=== PATIENT | female | born 1955 | race Caucasian/White ===

== ENCOUNTER 2016-04-28 07:30 | Inpatient (IN) | payer BC ==
--- NOTE | 2016-04-22 23:58 | Pre-op HX & Phy Repo 2 SIG ---
DATE OF ADMISSION: 04/28/2016 HISTORY OF PRESENT ILLNESS: The patient is a 60-year-old female, in overall stable health with a malfunctioning Burrell continent ileostomy with continuous daily incontinence, but without difficulty with intubation. The patient has a past history of ulcerative colitis and in 1985, underwent proctocolectomy with conventional Cecilia ileostomy. In 1990, she underwent conversion of her conventional ileostomy to a Burrell type of Kock pouch continent ileostomy. She had no issues for over 20 years. In early 2014, she began having incontinence and difficulty with intubation and underwent a surgical revision at another hospital. Postoperatively, she had persistent incontinence and was told she had an ulceration within the valve. She underwent another revision at the same outside hospital in July 2015 in [place] with a two hour lysis of adhesions and findings of a patulent valve, which was narrowed and stapled to the pouch wall and the collar was reestablished. The patient stated that as soon as her postoperative indwelling catheter was removed then she started intubating her pouch, she was immediately incontinent within two days of discharge. Her usual routine was to intubate four to six times per day and she had initially in 1990, frequent pouchitis, but then only occasional. She has been taking Cipro 500 mg every 12 hours, which somewhat improves the incontinence, but definitely does not control it to any great degree. She is scheduled to undergo a surgical revision of her malfunctioning Burrell pouch likely to create a new valve and stoma with preservation of the existing pouch. She will also undergo preoperative pouch endoscopy. The patient has indicated she definitely does not want to return to a Cecilia ileostomy. OPERATIONS: In addition to the above, she had surgery in 1989 for left ovarian cysts. MEDICATIONS: Effexor XL, Synthroid, Cipro, and Toviaz for bladder spasms (the patient had difficulty with the urinary Can catheter and has had persistent painful urination since then with negative work up). ALLERGIES: None. PHYSICAL EXAMINATION: VITAL SIGNS: The patient is 5 foot 8.5 inches and approximately 125 pounds. [place] and will be examined upon arrival and dictated separately. IMPRESSION: 1. Malfunctioning Burrell continent ileostomy with incontinence. 2. History of ulcerative colitis. 3. History of bladder spasms. 4. History of left ovarian cyst. 5. Status post multiple abdominal operations. 5.1. Proctocolectomy and Cecilia ileostomy in 1985. 5.2. Burrell continent ileostomy in 1990. 5.3. Revision of Burrell pouch in August 2014. 5.4. Revision of Burrell pouch in July 2015. 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 The only other option would be to excise this pouch and do a conventional ileostomy, which she definitely wishes to avoid. I have discussed the risks of surgery including bleeding, infection, injury to adjacent structures or organs, recurrent difficulties with the pouch or stoma needing more revisions, deep vein thrombosis despite prophylaxis, anesthetic issues, etc. I will have another discussion in person when she [place] and all questions will be answered. Jeffery Gamboa M.D. DR: JAM JOB#: [id number] CC:
[~2016-04-28] VITALS: Ht 170.2 cm; Wt 58.1 kg
[2016-04-28] MEDS ORDERED: Zolpidem 5mg tab ORAL PRN (09:45)
[2016-04-28 10:00] VITALS: BP 124/84
[2016-04-28 10:51] LABS: BASOPHILS % (AUTO) 2.6 % (0.0-2.0); EOSINOPHILS % (AUTO) 3.3 % (0.0-3.0); LYMPHOCYTES % (AUTO) 13.5 % (20.0-45.0); MEAN CORPUSCULAR HGB CONC 29.8 G/DL (32.0-36.0); MEAN CORPUSCULAR VOLUME 90 FL (80-99); MONOCYTES % (AUTO) 6.1 % (1.0-10.0); NEUTROPHILS % (AUTO) 74.6 % (45.0-75.0); PLATELET COUNT 352 K/UL (150-450); RED BLOOD COUNT 5.02 M/UL (4.20-5.40); RED CELL DISTRIBUTION WIDTH 15.6 % (11.6-14.8); WHITE BLOOD COUNT 4.4 K/UL (4.8-10.8)
[2016-04-28 10:52] LABS: PROTHROMBIN TIME 9.9 SEC (9.30-11.50)
[2016-04-28 10:55] LABS: ALANINE AMINOTRANSFERASE 12 U/L (3-33); ALBUMIN/GLOBULIN RATIO 1.8 (1.0-2.7); ANION GAP 14 (5-15); ASPARTATE AMINO TRANSFERASE 17 U/L (5-40); CALCIUM 9.9 mg/dL (8.6-10.2); CARBON DIOXIDE 27 mEQ/L (20-30); CHLORIDE 102 mEQ/L (98-107); CREATININE 0.8 mg/dL (0.5-0.9); GLOMERULAR FILTRATION RATE > 60 mL/min (>60); POTASSIUM 4.6 mEQ/L (3.4-4.9); SODIUM 143 mEQ/L (135-145); TOTAL PROTEIN 6.6 g/dL (6.6-8.7)
[2016-04-28 10:57] LABS: IRON 26 ug/dL (37-145); TOTAL IRON BINDING CAPACITY 354 ug/dL (250-400)
[2016-04-28 10:58] LABS: HEMOLYSIS 5
[2016-04-28 11:05] LABS: FERRITIN 24 ng/mL (13-150)
[2016-04-28] MEDS ORDERED: CIPRO500 MG PO (11:22)
[2016-04-28] MEDS ORDERED: SYNTHROID25 MCG ORAL (11:22)
[2016-04-28] MEDS ORDERED: TOVIAZ8 MG PO (11:22)
[2016-04-28] MEDS ORDERED: EFFEXOR XR75 MG ORAL (11:22)
--- NOTE | 2016-04-28 11:31 | General Progress Note ---
Progress Note Progress Note H&P dictated. Full discussion with patient regarding surgical options (new valve with pouch preservation and possible relocation of stoma to LLQ, new pouch , or Cecilia which she wishes to avoid) and risks (bleeding,infection,injury to adjacent structures or organs, DVT despite prophylaxis, etc. All questions answered. Plan: Pouch endoscopy today surgery tomorrow AYANA AUGUSTE Apr 28, 2016 11:31
--- NOTE | 2016-04-28 11:32 | Pre-Procedure Note/Attestation ---
Pre-Procedure Note/Attestation Complete Prior to Procedure Planned Procedure: not applicable Procedure Narrative: Burrell Continent Ileostomy pouch endoscopy Indications for Procedure Pre-Operative Diagnosis: Malfunctioning Burrell continent ileostomy with gross incontinence Attestation I attest that I discussed the nature of the procedure; its benefits; risks and complications; and alternatives (and the risks and benefits of such alternatives ), prior to the procedure, with the patient (or the patient's legal customer sales representative). I attest that, if there was a reasonable possibility of needing a blood transfusion, the patient (or the patient's legal customer sales representative) was given the [facility] standardized written summary, pursuant to the [place] Blood Safety Act ([place] Health and Safety Code # 1645, as amended). I attest that I re-evaluated the patient just prior to the surgery and that there has been no change in the patient's H&P, except as documented below: none AYANA AUGUSTE Apr 28, 2016 11:32
[2016-04-28] MEDS: Neomycin Sulfate 500mg Tab ORAL SCH ×3 (11:37→19:50)
--- NOTE | 2016-04-28 11:53 | Diagnostic Imaging Report ---
Indication: Cough Technique: Single portable AP view of the chest. Findings: Comparison: None. Lung apices excluded from image. Small calcified nodule overlies the medial left lung base. Visualized portions of lungs otherwise clear. The bones and extra pulmonary soft tissues, cardiomediastinal silhouette, pulmonary vasculature, and pleural surfaces are unremarkable. IMPRESSION: No evidence of acute cardiopulmonary disease, limited as described suggestion of calcified granuloma left lung base.
[2016-04-28 12:00] VITALS: BP 117/74
--- NOTE | 2016-04-28 12:52 | Brief Operative Note ---
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
[2016-04-28] MEDS ORDERED: Heparin 2000 units/Ns 1000ml INJ ONE (14:00)
[2016-04-28] MEDS ORDERED: Lidocaine 1% Plain 30 ml INJ ONE (14:00)
[2016-04-28] MEDS ORDERED: Sodium Bicarbonate 8.4% 50ml Inj IV ONE (14:00)
--- NOTE | 2016-04-28 14:25 | Anethesia Preoperative Eval ---
Anesthesia Pre-op PMH/ROS General Date of Evaluation: Apr 28, 2016 Time of Evaluation: 14:19 Anesthesiologist: Jalen ASA Score: ASA 2 Mallampati Score Class I : Soft palate, uvula, fauces, pillars visible Class II: Soft palate, uvula, fauces visible Class III: Soft palate, base of uvula visible Class IV: Only hard plate visible Mallampati Classification: Class II Surgeon: Bee Diagnosis: Malfunctioning continent pouch Surgical Procedure: Exploratory laparotomy Revision of Mccurdy pouch Anesthesia History: PONV - Very persistent Family History: no anesthesia problems Allergies: Coded Allergies: NO KNOWN DRUG ALLERGIES (Verified Allergy, Unknown, 04/28/16) Medications: see eMAR Past Medical History Cardiovascular: Denies: CAD, HTN, GA, arrhythmia, other, valve dz Pulmonary: Denies: COPD, NADE[place], asthma, other Gastrointestinal/Genitourinary: Reports: GERD, other - h/o UC s/p total colectomty, Denies: CRI, ESRD Neurologic/Psychiatric: Denies: CVA, TIA, dementia, depression/anxiety, other Endocrine: Reports: hypothyroidism, Denies: DM, other, steroids HEENT: Denies: [place] (L), [place] (R), cataract (L), cataract (R), glaucoma, other Hematology/Immune: Reports: anemia - mild, Denies: DVT, bleeding disorder, other Musculoskeletal/Integumentary: Denies: DDD, DJD, OA, RA, edema, other Other: other - slightly malnourished PMH Narrative: as above PSxH Narrative: Total colectomy, and multiple Sx for maintenance of continent pouch Anesthesia Pre-op Phys. Exam Physician Exam Last Vital Signs Date Time Temp Pulse Resp B/P Pulse Ox O2 Delivery O2 Flow Rate FiO2 04/28/16 12:00 96.8 85 17 117/74 98 Room Air Constitutional: NAD Neurologic: CN 2-12 intact Cardiovascular: RRR, no M/R/G Respiratory: CTA Gastrointestinal: S/NT/ND Airway Exam Mallampati Score: Class II MO: full Neck: flexible ROM: full Teeth: intact Dentures: no lower, no upper Anesthesia Pre-op A/P Labs Hematology Test 04/28/16 09:50 White Blood Count 4.4 K/UL (4.8-10.8) L Red Blood Count 5.02 M/UL (4.20-5.40) Hemoglobin 13.5 G/DL (12.0-16.0) Hematocrit 45.4 % (37.0-47.0) Mean Corpuscular Volume 90 FL (80-99) Mean Corpuscular Hemoglobin 27.0 PG (27.0-31.0) Mean Corpuscular Hemoglobin Concent 29.8 G/DL (32.0-36.0) L Red Cell Distribution Width 15.6 % (11.6-14.8) H Platelet Count 352 K/UL (150-450) Mean Platelet Volume 6.0 FL (6.5-10.1) L Neutrophils (%) (Auto) 74.6 % (45.0-75.0) Lymphocytes (%) (Auto) 13.5 % (20.0-45.0) L Monocytes (%) (Auto) 6.1 % (1.0-10.0) Eosinophils (%) (Auto) 3.3 % (0.0-3.0) H Basophils (%) (Auto) 2.6 % (0.0-2.0) H Coagulation Test 04/28/16 09:50 Prothrombin Time 9.9 SEC (9.30-11.50) Prothromb Time International Ratio 1.0 (0.9-1.1) Activated Partial Thromboplast Time 22 SEC (23-33) L Chemistry Test 04/28/16 09:50 Sodium Level 143 mEQ/L (135-145) Potassium Level 4.6 mEQ/L (3.4-4.9) Chloride Level 102 mEQ/L (98-107) Carbon Dioxide Level 27 mEQ/L (20-30) Anion Gap 14 (5-15) Blood Urea Nitrogen 12 mg/dL (7-23) Creatinine 0.8 mg/dL (0.5-0.9) Estimat Glomerular Filtration Rate > 60 mL/min (>60) Glucose Level 99 mg/dL (74-106) Calcium Level 9.9 mg/dL (8.6-10.2) Iron Level 26 ug/dL (37-145) L Total Iron Binding Capacity 354 ug/dL (250-400) Percent Iron Saturation 7 % (15-50) L Unsaturated Iron Binding 328 ug/dL (112-346) Ferritin 24 ng/mL (13-150) Total Bilirubin 0.2 mg/dL (0.0-1.2) Aspartate Amino Transf (AST/SGOT) 17 U/L (5-40) Alanine Aminotransferase (ALT/SGPT) 12 U/L (3-33) Alkaline Phosphatase 69 U/L (35-104) Total Protein 6.6 g/dL (6.6-8.7) Albumin 4.3 g/dL (3.5-5.2) Globulin 2.3 g/dL Albumin/Globulin Ratio 1.8 (1.0-2.7) Vitamin B12 Level 1643 pg/mL (211-946) H Folate Pending Studies Pre-op Studies: EKG - NSR Risk Assessment & Plan Assessment: GA with ETT PONV prevention Plan: ASA 2 Pre-Antibiotics Drug: as scheduled MARY GARSIA M.D. Apr 28, 2016 14:25
[2016-04-28 16:15] VITALS: BP 96/59
[2016-04-28] MEDS: D5 1/2NS w/KCl 20mEq 1,000 ML IV SCH (18:17)
[2016-04-28 20:22] VITALS: BP 108/63
[2016-04-28 22:04] LABS: APPEARANCE,URINE CLEAR; KETONES,URINE NEGATIVE (NEGATIVE); LEUKOCYTE ESTERASE ,URINE NEGATIVE (NEGATIVE); NITRITE,URINE NEGATIVE (NEGATIVE); PH,URINE 7 (4.5-8.0); PROTEIN,URINE NEGATIVE (NEGATIVE); UROBILINOGEN,URINE NORMAL MG/DL (0.0-1.0)
[2016-04-28 22:10] LABS: BACTERIA,URINE FEW /HPF; RBC,URINE 0-2 /HPF (0 - 2); SQUAMOUS EPITHELIAL CELL,UR FEW /LPF (NONE/OCC); WBC,URINE 0-2 /HPF (0 - 2)
[2016-04-28] MEDS: Ampicillin/Sulbactam Sod 3 GM in NS 100 ML IVPB SCH (23:44)
[2016-04-28] MEDS: metroNIDAZOLE 500mg 100 ML IVPB SCH (23:44)
[2016-04-29] VITALS (16 sets, daily range): BP systolic 84–122; BP diastolic 44–64
--- NOTE | 2016-04-29 02:38 | Pre-op HX & Phy Repo 2 SIG ---
DATE OF ADMISSION: 04/28/2016 HISTORY OF PRESENT ILLNESS: The patient [place] now [place]. Please see previously dictated history. PHYSICAL EXAMINATION: GENERAL: She is well developed and well nourished, 5 feet 8.5 inches and 125 pounds. VITAL SIGNS: Within normal limits. HEENT: Within normal limits. LUNGS: Clear. HEART: Regular rhythm. BREASTS: Without masses. ABDOMEN: Soft with a long midline scar and the stoma of her Burrell continent ileostomy pouch is low in the right lower quadrant and very stenotic. There is no evidence of abdominal wall hernia. PELVIC: Per primary care physicians recently. RECTAL: Status post proctectomy. EXTREMITIES: Without edema. Pulses 2+ femoral to pedal bilaterally. NEUROLOGIC: Physiologic. IMPRESSION: 1. Malfunctioning Burrell continent ileostomy with gross incontinence. 2. History of ulcerative colitis. 3. History of bladder spasms. 4. History of left ovarian cyst. 5. Status post multiple abdominal operations. 5.1. Proctocolectomy and Cecilia ileostomy in 1985. 5.2. Burrell continent ileostomy in 1990. 5.3. Revision of Burrell continent ileostomy in August 2014. 5.4. Revision of Burrell continent ileostomy in July 2015 (all these operations were done elsewhere). PLAN: The patient will undergo pouch endoscopy and be prepared for the surgery with insertion of a dual lumen PICC line, intravenous hydration, bowel prep and intravenous antibiotics and preoperative subcutaneous heparin. I have had a full discussion regarding the options for her surgery including revision of her pouch with creation of a new valve and stoma with possible relocation of the stoma to the left lower quadrant, resection of this pouch and creation of a new Burrell pouch, or resection of this pouch with creation of a conventional ileostomy, which she wishes to avoid if at all possible. I have discussed the indications, alternatives, options, and risks including bleeding, infection, injury to adjacent structures or organs, recurrent difficulties with a revised pouch or a new pouch that could require more surgery, deep vein thrombosis despite prophylaxis, etc. All questions have been answered. She understands and agrees to proceed. Jeffery Gamboa M.D. DR: STIVEN JOB#: [id number] CC:
--- NOTE | 2016-04-29 03:27 | Procedure Note ---
DATE OF PROCEDURE: 04/28/2016 ENDOSCOPY PROCEDURE REPORT: ENDOSCOPIST: Jeffery Gamboa M.D. TALENT DEVELOPMENT MANAGER: None. ANESTHESIOLOGIST: None. SEDATION: None. PRE-ENDOSCOPY DIAGNOSES: 1. Malfunctioning Burrell continent ileostomy with incontinence. 2. History of ulcerative colitis. 3. Status post proctocolectomy with conventional ileostomy followed by Burrell continent ileostomy in 1990 and revision in 2014 and 2015. POST-ENDOSCOPY DIAGNOSES: 1. Malfunctioning Burrell continent ileostomy with incontinence. 2. History of ulcerative colitis . 3. Status post proctocolectomy with conventional ileostomy followed by Burrell continent ileostomy in 1990 and revision in 2014 and 2015. ENDOSCOPY PERFORMED: Burrell continent ileostomy pouch endoscopy. 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 DESCRIPTION OF PROCEDURE: The patient was positioned supine in the GI lab and without any sedation or anesthesia, I attempted to insert the GIF-P140 endoscope, but the stoma was too small. I dilated it first with a 26-Welsh Can catheter and then with a 28-Welsh Can catheter. Then, I could insert the endoscope although it was tight. The distance to the tip of the nipple valve was 9 to 10 cm. The pouch was fairly distensible and the mucosa appeared normal. With retroflex views and considerable torquing of the endoscope, I was able to visualize the nipple valve. It looked somewhat foreshortened and there was inflammation at the base of the valve consistent with a valve fistula. Withdrawal views confirmed the above findings. Following the endoscopy, I was able to insert the 28-Welsh Can catheter into the pouch and flushed it. I taped it to the skin, placed a dressing over the stoma and connected it to a continuous gravity drainage bag. The patient tolerated the endoscopy well and will be prepared for laparotomy and revision of her pouch in the morning. Jeffery Gamboa M.D. DR: Bertrand JOB#: [id number] CC: IAN
[2016-04-29] MEDS ORDERED: Heparin 5000 units/ml inj SUBQ ONE (05:30)
[2016-04-29] MEDS: Levothyroxine 25mcg tab ORAL SCH (05:36)
[2016-04-29] MEDS: metroNIDAZOLE 500mg 100 ML IVPB SCH (05:37)
[2016-04-29] MEDS: Ampicillin/Sulbactam Sod 3 GM in NS 100 ML IVPB SCH (05:37)
[2016-04-29] MEDS: D5 1/2NS w/KCl 20mEq 1,000 ML IV SCH (07:20)
[2016-04-29] MEDS ORDERED: Glycopyrrolate 0.2mg/ml 1ml Vial ONE (07:30)
[2016-04-29] MEDS ORDERED: Zemuron 50mg/5ml Inj IV ONE (07:30)
[2016-04-29] MEDS ORDERED: Neostigmine 1mg/ml 10ml Inj ONE (07:30)
[2016-04-29] MEDS ORDERED: NS Irrig 1000ml ONE (07:30)
[2016-04-29] MEDS ORDERED: fentaNYL 100 mcg/2 mL IV ONE (07:30)
[2016-04-29] MEDS ORDERED: Succinylcholine 20mg/ml 10ml vial ONE (07:30)
[2016-04-29] MEDS ORDERED: Sterile Water Irrig 1000ml IRRIG ONE (07:30)
[2016-04-29] MEDS ORDERED: Midazolam 2mg/2ml Inj ONE (07:30)
[2016-04-29] MEDS ORDERED: Propofol 10mg/ml 20ml IV ONE (07:30)
--- NOTE | 2016-04-29 07:31 | Pre-Procedure Note/Attestation ---
Pre-Procedure Note/Attestation Complete Prior to Procedure Planned Procedure: not applicable Procedure Narrative: revision of Burrell continent ileostomy, possible new Burrell Pouch Indications for Procedure Pre-Operative Diagnosis: Malfunctioning Burrell continent ileostomy with gross incontinence Attestation I attest that I discussed the nature of the procedure; its benefits; risks and complications; and alternatives (and the risks and benefits of such alternatives ), prior to the procedure, with the patient (or the patient's legal service center representative). I attest that, if there was a reasonable possibility of needing a blood transfusion, the patient (or the patient's legal service center representative) was given the [facility] standardized written summary, pursuant to the [place]roy [place] Blood Safety Act ([place] Health and Safety Code # 1645, as amended). I attest that I re-evaluated the patient just prior to the surgery and that there has been no change in the patient's H&P, except as documented below: none AYANA AUGUSTE Apr 29, 2016 07:30
--- NOTE | 2016-04-29 08:26 | Immediate Post-Op Evaluation ---
Immediate Post-Op Evalulation Immediate Post-Op Evalulation Procedure: REVISION BRUNNER CONTINENT ILEOSTOMY Date of Evaluation: Apr 29, 2016 Time of Evaluation: 16:00 IV Fluids: 3400 Blood Products: 500 PRBC Estimated Blood Loss: 1600 Urinary Output: 400 Blood Pressure Systolic: 133 Blood Pressure Diastolic: 77 Pulse Rate: 80 Respiratory Rate: 14 O2 Sat by Pulse Oximetry: 99 Temperature (Fahrenheit): 98 Pain Score (1-10): 1 Nausea: No Vomiting: No Patient Status: awake, patent, none Hydration Status: adequate Drug: FLAGY/UNISYN Given Within 1 Hr of Incision: Yes Time Given: 07:30 RICKY SOTO M.D. Apr 29, 2016 08:26
[2016-04-29] MEDS ORDERED: Hydromorphone 0.5mg/0.5ml inj IVP PRN (08:30)
[2016-04-29] MEDS ORDERED: Venlafaxine XR 75mg cap ORAL SCH (09:00)
[2016-04-29] MEDS ORDERED: Bacitracin 50000 Units Vial ONE (10:12)
--- NOTE | 2016-04-29 11:56 | Diagnostic Imaging Report ---
Indication: termination clerk venous access Findings: After the indications, procedure, risks, complications, and alternatives of the procedure were explained, written informed consent was obtained. The left upper extremity was prepped with alcohol. All elements of maximal sterile barrier technique were followed including usage of a cap, mask, sterile gown, sterile gloves, hand hygiene and a large sterile sheet. Sonographic evaluation of the upper extremity was performed demonstrating a patent and compressible basilic vein. Access was obtained under real-time ultrasound guidance and digital image was saved and archived. An .018 wire was introduced. Needle exchanged for a 5 [place] peel-away sheath. Measurements were obtained. A 5 [place] dual-lumen Power PICC line catheter was cut to 38 cm and introduced over the wire. Peel-away sheath and wire were removed.Catheter was secured to the skin using 2-0 Prolene suture. Both ports aspirate and flush easily. Fluoroscopic Images show distal tip in the superior vena cava. Total fluoroscopic times O.5 minutes Impression: Successful placement of an upper extremity PICC line catheter
[2016-04-29] MEDS ORDERED: metroNIDAZOLE 500mg 100 ML IV SCH (12:00)
[2016-04-29] MEDS ORDERED: Ampicillin/Sulbactam Sod 3 GM in NS 100 ML IV SCH (12:00)
[2016-04-29] MEDS: Neomycin Sulfate 500mg Tab ORAL SCH (12:00)
[2016-04-29 14:04] LABS: MEAN CORPUSCULAR HEMOGLOBIN 27.9 PG (27.0-31.0); MEAN CORPUSCULAR HGB CONC 31.5 G/DL (32.0-36.0); MEAN CORPUSCULAR VOLUME 89 FL (80-99); MEAN PLATELET VOLUME 5.5 FL (6.5-10.1); PLATELET COUNT 188 K/UL (150-450); RED BLOOD COUNT 3.52 M/UL (4.20-5.40); RED CELL DISTRIBUTION WIDTH 14.5 % (11.6-14.8); WHITE BLOOD COUNT 7.9 K/UL (4.8-10.8)
[2016-04-29 14:22] LABS: POTASSIUM 3.3 mEQ/L (3.4-4.9)
[2016-04-29 14:23] LABS: INR 1.2 (0.9-1.1); PROTHROMBIN TIME 12.3 SEC (9.30-11.50)
[2016-04-29 14:26] LABS: ANISOCYTOSIS 1+; BAND NEUTROPHILS % (MANUAL) 10 % (0-8); BASOPHILS % (MANUAL) 0 % (0-2); EOSINOPHILS % (MANUAL) 0 % (0-3); HYPOCHROMASIA 1+; LYMPHOCYTES % (MANUAL) 3 % (20-45); NEUTROPHILS % (MANUAL) 77 % (45-75); PLATELET ESTIMATE ADEQUATE; PLATELET MORPHOLOGY NORMAL; TOTAL CELLS COUNTED 100
[2016-04-29] MEDS ORDERED: LORazepam 1mg tab SL PRN ×2 (15:15)
[2016-04-29] MEDS ORDERED: Acetaminophen 650mg/20.3ml NG PRN (15:15)
--- NOTE | 2016-04-29 15:25 | Brief Operative Note ---
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
[2016-04-29] MEDS ORDERED: Naloxone 0.4mg/ml Inj IVP PRN (15:30)
[2016-04-29] MEDS ORDERED: PCA HYDROmorphone 1mg/ml 30 ML IV PRN (15:30)
[2016-04-29] MEDS ORDERED: Rate Change PCA 1 Each MISC PRN (15:30)
[2016-04-29] MEDS ORDERED: DiphenhydrAMINE 50mg/ml Inj IVP PRN (15:30)
[2016-04-29] MEDS ORDERED: Sterile Water For Irrig 2000ml IRRIG ONE (18:15)
[2016-04-29 18:24] LABS: MEAN CORPUSCULAR HGB CONC 30.8 G/DL (32.0-36.0); MEAN CORPUSCULAR VOLUME 91 FL (80-99); MEAN PLATELET VOLUME 5.2 FL (6.5-10.1); PLATELET COUNT 133 K/UL (150-450); RED BLOOD COUNT 2.82 M/UL (4.20-5.40); RED CELL DISTRIBUTION WIDTH 14.8 % (11.6-14.8); WHITE BLOOD COUNT 7.4 K/UL (4.8-10.8)
[2016-04-29 18:43] LABS: ANION GAP 16 (5-15); CALCIUM 6.5 mg/dL (8.6-10.2); CARBON DIOXIDE 17 mEQ/L (20-30); CHLORIDE 106 mEQ/L (98-107); CREATININE 0.4 mg/dL (0.5-0.9); GLOMERULAR FILTRATION RATE > 60 mL/min (>60); HEMOLYSIS 6; POTASSIUM 3.6 mEQ/L (3.4-4.9); SODIUM 139 mEQ/L (135-145)
[2016-04-29] MEDS: D5 1/4NS w/KCl 20mEq 1,000 ML IV SCH (19:20)
[2016-04-29] MEDS: Ampicillin/Sulbactam Sod 3 GM in NS 100 ML IV SCH (21:19)
[2016-04-29] MEDS: metroNIDAZOLE 500mg 100 ML IV SCH (21:19)
[2016-04-29 22:27] LABS: ANISOCYTOSIS 1+; BAND NEUTROPHILS % (MANUAL) 0 % (0-8); BASOPHILS % (MANUAL) 0 % (0-2); EOSINOPHILS % (MANUAL) 0 % (0-3); HYPOCHROMASIA 1+; LYMPHOCYTES % (MANUAL) 7 % (20-45); NEUTROPHILS % (MANUAL) 88 % (45-75); PLATELET ESTIMATE DECREASED; PLATELET MORPHOLOGY NORMAL; TOTAL CELLS COUNTED 100
[2016-04-29] MEDS: PCA shift volume MISC SCH (23:07)
[2016-04-30] VITALS (14 sets, daily range): BP systolic 80–107; BP diastolic 35–58
[2016-04-30] MEDS: Ampicillin/Sulbactam Sod 3 GM in NS 100 ML IV SCH ×4 (02:43→20:52)
--- NOTE | 2016-04-30 02:57 | Operative Note - Dictated ---
DATE OF OPERATION: 04/29/2016 SURGEON: Jeffery Gamboa M.D. MASTER WELDER SURGEON: Stanislaw Cobos M.D. ANESTHESIOLOGIST: Dr. Mireles. TYPE OF ANESTHESIA: General endotracheal. PREOPERATIVE DIAGNOSES: 1. Malfunctioning Burrell continent ileostomy. 2. History of ulcerative colitis. 3. Status post multiple abdominal operations. 3.1. Proctocolectomy and Cecilia ileostomy in 1985. 3.2. Burrell continent ileostomy in 1990. 3.3. Revision of Burrell pouch in August 2014. 3.4. Revision of Burrell pouch in July 2015. (All these operations were done elsewhere). POSTOPERATIVE DIAGNOSES: 1. Malfunctioning Burrell continent ileostomy. 2. Hostile frozen abdomen. 3. Status post multiple abdominal operations. 3.1. Proctocolectomy and Cecilia ileostomy in 1985. 3.2. Burrell continent ileostomy in 1990. 3.3. Revision of Burrell pouch in August 2014. 3.4. Revision of Burrell pouch in July 2015. (All these operations were done elsewhere). DURATION OF OPERATION: 6 hours 40 minutes. PROCEDURES PERFORMED: Laparotomy with resection of failed Burrell continent ileostomy pouch and afferent bowel, repair of multiple enterotomies, and creation of Cecilia ileostomy. FINDINGS: The patient had a hostile severely frozen abdomen with diffuse dense adhesions. She had a prolonged operation with blood loss of 1200 mL and received 2 units of packed red blood cell transfusion during the procedure and remained stable. She has approximately 12 feet of small bowel remaining and was not a candidate to have a new continent ileostomy pouch created. DESCRIPTION OF PROCEDURE: The patient was taken to the operating room and under general endotracheal anesthesia with sequential compression device stockings and Can catheter in place, having received preoperative subcutaneous heparin and intravenous antibiotics, she was prepped and draped in the usual fashion. Previous midline incision was reopened from the midepigastrium to pubis excising the wide portions of the skin scar. There were severe adhesions throughout the abdomen although the liver and gallbladder were free and normal to inspection and palpation. The stomach was entrapped with multiple adhesions. Nearly a three-hour long dissection and lysis of adhesions was required with multiple enterotomies created and the pouch irreparably damaged. There was significant bleeding during the procedure and she was transfused 2 units. The more proximal enterotomies were closed with transverse orientation with continuous locking 3-0 chromic, full thickness, followed by imbricating 3-0 silk. The afferent bowel proximally 1 to 2 feet leading to the pouch was caught up in the most severe reaction and could not be salvaged nor could the pouch. The ileum just proximal to this area was divided with the LAUREN stapler and then the mesentery to the pouch serially divided between clamps ligating with #0 silk. The pouch was extremely adherent to the bladder, but the bladder was dissected free and the ureters identified and ureters and bladder were protected throughout the procedure. The specimen was given to the pathologist and oriented for pathologic inspection. The abdomen was carefully inspected and irrigated and no additional discrete bleeding points were found after, but there was some oozing from the raw surfaces especially in the pelvis. The uterus and adnexa were absent. I placed a 19 mm round Kenny suction drain into the deep pelvis through a stab incision in the left lower quadrant and sutured it to the skin with 2-0 nylon. Then, an appropriate location was marked in the upper portion of the right lower quadrant in the transrectus position. The prior Burrell pouch stoma site low in the right lower quadrant was closed with interrupted #0 Prolene followed by antibiotic irrigation and 3-0 Vicryl subcutaneous sutures and the skin closed with krystina as well as interrupted 2-0 nylon vertical mattress sutures to demetrius the skin edges. Then a circular disc of skin at the ileostomy site was excised and with a cruciate incision in the fascia, a 2 fingerbreadth abdominal wall hiatus was created. The ileum was oriented so the mesentery was cephalad and the mesentery trimmed for several centimeters ligating with 3-0 Vicryl. The ileum was brought up through the abdominal wall hiatus and the staple line excised and the ileostomy matured in typical Cecilia fashion with interrupted 3-0 chromic creating a very nice everted bud. The abdominal cavity was again inspected for hemostasis, which was secure except for some oozing in the pelvis to be controlled with the drain and placing the bowel loops back into the pelvis. The nasogastric tube was placed by the anesthesiologist because doing a catheter gastrostomy would have extended the surgery considerable additional time. The midline incision was then closed with continuous #1 Prolene inverting the knots, with subcutaneous tissues copiously irrigated with antibiotic solution and the skin incision closed with krystina. Then an appropriate size ileostomy appliance was cut to fit and placed over the stoma and dry sterile dressing placed on the rest of the incision. Despite the magnitude of the surgery and the blood loss, the patient remained stable during the operation and will be transferred to the intensive care unit for overnight observation after being monitored in the post anesthesia care unit. Jeffery Gamboa M.D. DR: JAM JOB#: [id number] CC: IAN
[2016-04-30] MEDS: metroNIDAZOLE 500mg 100 ML IV SCH ×4 (03:11→21:39)
[2016-04-30] MEDS: D5 1/4NS w/KCl 20mEq 1,000 ML IV SCH ×5 (05:00→20:52)
[2016-04-30] MEDS: Levothyroxine 25mcg tab ORAL SCH (05:35)
[2016-04-30 06:11] LABS: MEAN CORPUSCULAR HEMOGLOBIN 29.3 PG (27.0-31.0); MEAN CORPUSCULAR HGB CONC 32.9 G/DL (32.0-36.0); MEAN CORPUSCULAR VOLUME 89 FL (80-99); MEAN PLATELET VOLUME 5.3 FL (6.5-10.1); PLATELET COUNT 135 K/UL (150-450); RED BLOOD COUNT 3.92 M/UL (4.20-5.40); RED CELL DISTRIBUTION WIDTH 14.3 % (11.6-14.8); WHITE BLOOD COUNT 11.2 K/UL (4.8-10.8)
[2016-04-30 06:21] LABS: ALANINE AMINOTRANSFERASE 6 U/L (3-33); ALBUMIN/GLOBULIN RATIO 2.1 (1.0-2.7); ANION GAP 11 (5-15); ASPARTATE AMINO TRANSFERASE 11 U/L (5-40); CALCIUM 7.1 mg/dL (8.6-10.2); CARBON DIOXIDE 23 mEQ/L (20-30); CHLORIDE 109 mEQ/L (98-107); CREATININE 0.6 mg/dL (0.5-0.9); GLOMERULAR FILTRATION RATE > 60 mL/min (>60); HEMOLYSIS 4; POTASSIUM 3.8 mEQ/L (3.4-4.9); SODIUM 143 mEQ/L (135-145); TOTAL PROTEIN 4.1 g/dL (6.6-8.7)
[2016-04-30] MEDS ORDERED: Metoclopramide 10mg/2ml Inj IVP STA (06:33)
--- NOTE | 2016-04-30 06:41 | General Progress Note ---
Progress Note Progress Note AVSS c/o nausea and numbness right hand Chest clear, Cor - reg rhythm Abdomen - soft, flat, incisions clean, stoma pink Right hand is slightly weaker than left and decreased sensation, shoulder strength normal Overnight 8hours: urine 460 (clear) NG -0 KAREY drain 90 bloody WBC 11,200 Hgb 11.5 - yesterday post-op 7.9 - received 3rd unit of blood (2 given intra-op) BUN 9 Cr 0.6 Albumin 2.8 Imp. Ileus Nausea Right hand neuropraxia Plan: Transfer to [facility] Continue NG, Can (pelvic dissection) Add Reglan IV q6h (hold Effexor) f/u labs, I&O mobilize Full discussion with patient re operative findings and procedure - she understands AYANA AUGUSTE Apr 30, 2016 06:41
[2016-04-30] MEDS ORDERED: Metoclopramide 10mg/2ml Inj IVP PRN ×2 (06:45→11:30)
[2016-04-30] MEDS: PCA shift volume MISC SCH ×3 (07:00→23:16)
[2016-04-30 08:42] LABS: BAND NEUTROPHILS % (MANUAL) 5 % (0-8); BASOPHILS % (MANUAL) 0 % (0-2); EOSINOPHILS % (MANUAL) 0 % (0-3); LYMPHOCYTES % (MANUAL) 4 % (20-45); NEUTROPHILS % (MANUAL) 86 % (45-75); PLATELET ESTIMATE DECREASED; PLATELET MORPHOLOGY NORMAL; TOTAL CELLS COUNTED 100
[2016-04-30 09:38] LABS: FOLIC ACID 19.1 ng/mL (3.1-17.5)
[2016-04-30] MEDS ORDERED: Naloxone 0.4mg/ml Inj IVP PRN (10:15)
--- NOTE | 2016-04-30 10:31 | Wound Care Consultation ---
Wound Assessment Wound Assessment : Wound Number: #1 Wound Present on Admission: Yes New Wound: No Status Change of Wound: No Wound Location Body Site Modif: right, other - quadrant Wound Location Body Site: abdomen Wound Type: other - Ileostomy Percent of Wound Williamson/Red: 100 - stoma is 100% pnink Wound Drainage Odor: None/Absent Tissue Surrounding Wound: Intact Wound General Appearance: Clean/Dry Wound Comment #1 New Ileostomy to right side abdomen. Recommendation. - Wound care as ordered. -Optimize nutrition. -Keep clean and dry. -Turn and reposition. -Keep clean and dry. -Assess and notify MD if any changes are noted. Upon assessment noted Convatec Ileostomy bag intact, dry, no leaks noted,stoma color is 100% pink. Provided ileostomy supplies for patient. Also patient stated she had one about 20 years ago and is familiar. Patient was provided with steps on how to change ileostomy bag, along with explanation of supplies provided.Notified patient that if she had any further questions to notify Nurses or wound care, verbalize she understands. RODDY PENNINGTON Apr 30, 2016 10:31
[2016-04-30] MEDS ORDERED: PCA HYDROmorphone 1mg/ml 30 ML IV PRN (10:45)
[2016-04-30] MEDS ORDERED: DiphenhydrAMINE 50mg/ml Inj IVP PRN (11:00)
[2016-04-30] MEDS ORDERED: Zolpidem 5mg tab ORAL PRN (11:00)
[2016-04-30] MEDS ORDERED: Rate Change PCA 1 Each MISC PRN (11:00)
[2016-04-30] MEDS ORDERED: Acetaminophen 650mg/20.3ml GT PRN (11:00)
[2016-04-30] MEDS ORDERED: LORazepam 1mg tab SL PRN (11:15)
--- NOTE | 2016-04-30 12:52 | 48 Hour Post Anesthesia Eval ---
Post Anesthesia Evaluation Procedure: REVISION BRUNNER CONTINENT ILEOSTOMY Date of Evaluation: Apr 30, 2016 Time of Evaluation: 12:50 Blood Pressure Systolic: 90 0: 48 Pulse Rate: 72 Respiratory Rate: 20 Temperature (Fahrenheit): 97.6 O2 Sat by Pulse Oximetry: 99 Airway: patent Nausea: No Vomiting: No Pain Intensity: 3 Hydration Status: adequate Cardiopulmonary Status: stable Mental Status/LOC: patient returned to baseline Follow-up Care/Observations: n/a Post-Anesthesia Complications: none Follow-up care needed: N/A MARY GARSIA M.D. Apr 30, 2016 12:51
--- NOTE | 2016-04-30 13:50 | Wound Nurse Progress Note ---
Wound RN Progress Note Wound Consult Provided extra supplies for patient. Patient has 5 sets of wafer and ostomy pouches. Patient also provided with print outs for Ileostomy care after and changing ostomy pouch. RODDY PENNINGTON Apr 30, 2016 13:50
--- NOTE | 2016-04-30 16:03 | General Progress Note ---
Progress Note Progress Note Awake and alert, VS stable. 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 Stable with ileus Plan: Physical therapy for right hand/wrist weakness due to neuropraxia Start TPN due to low albumin and extensive nature of the surgery with extensive small bowel resection AYANA AUGUSTE Apr 30, 2016 16:03
[2016-04-30] MEDS ORDERED: Tubing Blood Filter IV ONE (16:18)
[2016-04-30] MEDS ORDERED: Tubing IV Secondary IV ONE (16:18)
[2016-04-30] MEDS ORDERED: NS 275ml ONE (16:18)
[2016-04-30] MEDS ORDERED: Fat Emulsion Iv 20% 250 ML IV SCH (21:00)
[2016-05-01] VITALS: BP 104/54
[2016-05-01] MEDS: LORazepam 1mg tab SL PRN (00:10)
[2016-05-01] MEDS: Ampicillin/Sulbactam Sod 3 GM in NS 100 ML IV SCH ×4 (03:20→20:36)
[2016-05-01] MEDS: metroNIDAZOLE 500mg 100 ML IV SCH ×4 (03:56→20:58)
[2016-05-01 04:00] VITALS: BP 114/58
[2016-05-01] MEDS: Levothyroxine 25mcg tab ORAL SCH (05:56)
[2016-05-01] MEDS: D5 1/4NS w/KCl 20mEq 1,000 ML IV SCH (07:00)
[2016-05-01] MEDS: PCA shift volume MISC SCH ×3 (07:00→23:00)
[2016-05-01 07:16] LABS: MEAN CORPUSCULAR HEMOGLOBIN 28.8 PG (27.0-31.0); MEAN CORPUSCULAR HGB CONC 33.5 G/DL (32.0-36.0); MEAN CORPUSCULAR VOLUME 86 FL (80-99); MEAN PLATELET VOLUME 6.7 FL (6.5-10.1); PLATELET COUNT 180 K/UL (150-450); RED BLOOD COUNT 3.72 M/UL (4.20-5.40); RED CELL DISTRIBUTION WIDTH 13.9 % (11.6-14.8); WHITE BLOOD COUNT 11.5 K/UL (4.8-10.8)
[2016-05-01 07:22] LABS: ANION GAP 9 (5-15); CALCIUM 7.6 mg/dL (8.6-10.2); CARBON DIOXIDE 26 mEQ/L (20-30); CHLORIDE 108 mEQ/L (98-107); CREATININE 0.5 mg/dL (0.5-0.9); GLOMERULAR FILTRATION RATE > 60 mL/min (>60); HEMOLYSIS 0; POTASSIUM 2.9 mEQ/L (3.4-4.9); SODIUM 143 mEQ/L (135-145)
[2016-05-01 08:00] VITALS: BP 112/58
[2016-05-01 08:13] LABS: ANISOCYTOSIS 1+; BAND NEUTROPHILS % (MANUAL) 0 % (0-8); BASOPHILS % (MANUAL) 0 % (0-2); EOSINOPHILS % (MANUAL) 0 % (0-3); HYPOCHROMASIA 1+; LYMPHOCYTES % (MANUAL) 7 % (20-45); NEUTROPHILS % (MANUAL) 91 % (45-75); PLATELET ESTIMATE ADEQUATE; PLATELET MORPHOLOGY NORMAL; TOTAL CELLS COUNTED 100
--- NOTE | 2016-05-01 09:47 | General Progress Note ---
Progress Note Progress Note AVSS Comfortable with SHEET HEATER. Still with weakness right hand (after last surgery in [place] had weakness of her entire right arm) Abdomen soft, mildly distended, incisions clean, stoma pink Urine 1275 Ileostomy - nil KAREY drain 110 serosang WBC 11,500 (up) Hgb 10.7 (down) Platelets 180,000 (up) BUN 5 Cr 0.5 K 2.9 Imp. Ileus Plan: Start TPN later today Ambulate with assistance BID PT for right hand weakness Increase KCL in IV fluids f/u labs AYANA AUGUSTE May 01, 2016 09:47
[2016-05-01] MEDS ORDERED: DiphenhydrAMINE 50mg/ml Inj IVP PRN (10:00)
[2016-05-01] MEDS ORDERED: Naloxone 0.4mg/ml Inj IVP PRN (10:00)
[2016-05-01] MEDS ORDERED: Rate Change PCA 1 Each MISC PRN (10:00)
[2016-05-01] MEDS ORDERED: PCA HYDROmorphone 1mg/ml 30 ML IV PRN (10:45)
[2016-05-01] MEDS ORDERED: D5 1/2NS w/KCl 40meq 1000ml 1,000 ML IV SCH ×2 (11:00→21:00)
[2016-05-01 12:00] VITALS: BP 121/63
[2016-05-01 16:00] VITALS: BP 124/67
[2016-05-01] MEDS ORDERED: Tubing IV Secondary IV ONE (16:41)
[2016-05-01 19:00] VITALS: BP 121/67
[2016-05-01] MEDS ORDERED: Phytonadione 10 mg/mL 1ml amp SUBQ SCH (21:00)
[2016-05-01] MEDS ORDERED: Fat Emulsion Iv 20% 240 ML in Tpn 1,992 ML IV SCH (21:00)
[2016-05-01] MEDS ORDERED: D5 1/4NS w/KCl 20mEq 1,000 ML IV SCH (21:00)
[2016-05-01] MEDS ORDERED: Dextrose 10% 1,000 ML IV PRN (21:00)
[2016-05-01] MEDS ORDERED: FAT EMULSION 20% IV SCH (21:00)
[2016-05-01] MEDS ORDERED: [UNRECOGNIZED DRUG - OTHER] IV SCH ×2 (21:00)
[2016-05-01] MEDS: Fat Emulsion Iv 20% 216 ML in Tpn 1,560 ML IV SCH (21:08)
[2016-05-02] VITALS (7 sets, daily range): BP systolic 113–124; BP diastolic 59–65
[2016-05-02] MEDS: LORazepam 1mg tab SL PRN ×2 (02:58→22:45)
[2016-05-02] MEDS: Ampicillin/Sulbactam Sod 3 GM in NS 100 ML IV SCH ×4 (02:58→20:39)
[2016-05-02] MEDS: metroNIDAZOLE 500mg 100 ML IV SCH ×4 (02:59→20:39)
[2016-05-02 05:20] LABS: MEAN CORPUSCULAR HGB CONC 33.4 G/DL (32.0-36.0); MEAN CORPUSCULAR VOLUME 87 FL (80-99); MEAN PLATELET VOLUME 5.8 FL (6.5-10.1); PLATELET COUNT 153 K/UL (150-450); RED BLOOD COUNT 3.44 M/UL (4.20-5.40); RED CELL DISTRIBUTION WIDTH 14.1 % (11.6-14.8); WHITE BLOOD COUNT 11.7 K/UL (4.8-10.8)
[2016-05-02 05:33] LABS: ANION GAP 8 (5-15); CALCIUM 7.7 mg/dL (8.6-10.2); CARBON DIOXIDE 28 mEQ/L (20-30); CHLORIDE 106 mEQ/L (98-107); CREATININE 0.5 mg/dL (0.5-0.9); GLOMERULAR FILTRATION RATE > 60 mL/min (>60); HEMOLYSIS 5; POTASSIUM 2.9 mEQ/L (3.4-4.9); SODIUM 142 mEQ/L (135-145)
[2016-05-02] MEDS: NovoLOG Insulin Flexpen SUBQ SCH ×4 (06:00→18:00)
[2016-05-02] MEDS: Levothyroxine 25mcg tab ORAL SCH (06:33)
[2016-05-02] MEDS: PCA shift volume MISC SCH ×3 (07:00→23:00)
--- NOTE | 2016-05-02 10:11 | General Progress Note ---
Progress Note Progress Note Tmax 100.4 Fairly good IS effort - chest clear with decreased expansion Abdomen soft, flat, non-tender, incisions clean, ileostomy pink Right hand numbness very slightly improved, still with weakness - seen by PT Urine 1550 Ileostomy nil NG 575cc bilious KAREY drain 67 (dark - ? old blood) WBC 11,700 (up) Hgb 10 (down) K 2.9 (same as yesterday) Glu 148 Imp. Ileus Atelectasis Plan: Increase KCL in IV again, and Increase IV fluid in addition to TPN Continue IS 10x/hour Continue Can and NG tube f/u labs in AM PT re right hand weakness AYANA AUGUSTE May 02, 2016 10:11
[2016-05-02] MEDS ORDERED: Rate Change PCA 1 Each MISC PRN (12:00)
[2016-05-02] MEDS ORDERED: DiphenhydrAMINE 50mg/ml Inj IVP PRN (12:00)
[2016-05-02] MEDS ORDERED: PCA HYDROmorphone 1mg/ml 30 ML IV PRN (12:00)
[2016-05-02] MEDS ORDERED: Naloxone 0.4mg/ml Inj IVP PRN (12:00)
[2016-05-02] MEDS: [UNRECOGNIZED DRUG - OTHER] IV SCH (12:26)
[2016-05-02] MEDS: POTASSIUM CHLORIDE IV SCH (12:26)
[2016-05-02] MEDS: D5 IV SCH (12:26)
[2016-05-02] MEDS: Fat Emulsion Iv 20% 216 ML in Tpn 1,560 ML IV SCH (20:40)
[2016-05-02] MEDS ORDERED: [UNRECOGNIZED DRUG - OTHER] IV SCH (21:00)
[2016-05-02] MEDS ORDERED: POTASSIUM CHLORIDE IV SCH (21:00)
[2016-05-02] MEDS ORDERED: D5 IV SCH (21:00)
[2016-05-03] VITALS: BP 118/64
[2016-05-03] MEDS: D5 IV SCH ×2 (01:40→12:41)
[2016-05-03] MEDS: POTASSIUM CHLORIDE IV SCH ×2 (01:40→12:41)
[2016-05-03] MEDS: [UNRECOGNIZED DRUG - OTHER] IV SCH (01:40)
[2016-05-03] MEDS: metroNIDAZOLE 500mg 100 ML IV SCH ×4 (03:05→21:14)
[2016-05-03] MEDS: Ampicillin/Sulbactam Sod 3 GM in NS 100 ML IV SCH ×4 (03:06→21:13)
[2016-05-03 04:00] VITALS: BP 114/54
[2016-05-03] MEDS: NovoLOG Insulin Flexpen SUBQ SCH ×4 (06:00→17:35)
[2016-05-03] MEDS: Levothyroxine 25mcg tab ORAL SCH (06:37)
[2016-05-03] MEDS: PCA shift volume MISC SCH ×3 (07:00→23:00)
[2016-05-03 07:41] LABS: BASOPHILS % (AUTO) 0.4 % (0.0-2.0); EOSINOPHILS % (AUTO) 5.4 % (0.0-3.0); LYMPHOCYTES % (AUTO) 8.9 % (20.0-45.0); MEAN CORPUSCULAR HEMOGLOBIN 28.9 PG (27.0-31.0); MEAN CORPUSCULAR HGB CONC 33.5 G/DL (32.0-36.0); MEAN CORPUSCULAR VOLUME 86 FL (80-99); MEAN PLATELET VOLUME 6.3 FL (6.5-10.1); MONOCYTES % (AUTO) 4.8 % (1.0-10.0); NEUTROPHILS % (AUTO) 80.5 % (45.0-75.0); PLATELET COUNT 183 K/UL (150-450); RED BLOOD COUNT 3.48 M/UL (4.20-5.40); RED CELL DISTRIBUTION WIDTH 13.6 % (11.6-14.8); WHITE BLOOD COUNT 7.6 K/UL (4.8-10.8)
[2016-05-03 07:59] LABS: ALANINE AMINOTRANSFERASE 5 U/L (3-33); ALBUMIN/GLOBULIN RATIO 1.2 (1.0-2.7); ANION GAP 10 (5-15); ASPARTATE AMINO TRANSFERASE 8 U/L (5-40); CALCIUM 7.8 mg/dL (8.6-10.2); CARBON DIOXIDE 30 mEQ/L (20-30); CHLORIDE 104 mEQ/L (98-107); CREATININE 0.5 mg/dL (0.5-0.9); GLOMERULAR FILTRATION RATE > 60 mL/min (>60); HEMOLYSIS 4; MAGNESIUM 1.5 mg/dL (1.7-2.5); PHOSPHORUS 1.1 mg/dL (2.5-4.8); POTASSIUM 2.8 mEQ/L (3.4-4.9); SODIUM 144 mEQ/L (135-145)
[2016-05-03 08:00] VITALS: BP 127/67
[2016-05-03 08:36] LABS: INR 1.2 (0.9-1.1)
--- NOTE | 2016-05-03 09:39 | General Progress Note ---
Progress Note Progress Note Afebrile x 24 hours. Tachycardia fully resolved. Denies abdominal pain. Abdomen soft, flat, non-tender. Incisions clean Urine 1900cc NG 1175 bilious Ileostomy - nil KAREY drain 58cc - enteric bilious fluid WBC down 7600 Hgb 10.1 stable Platelets up 183,000 INR up 1.2 BUN 9 Cr 0.5 Na 144 K down 2.8 P down 1.1 Mg down 1.5 Albumin down 2.2 Imp. Ileus Enteric fistula controlled with KAREY (drainage bilious) Low K,Mg,P Plan: D/C basal infusion of MENTAL HEALTH SPECIALIST Increase KCL in IV fluids Bolus replacement for Mg and P Continue TPN vitamin K IVx1 Hopefully can avoid reoperation for bowel leak controlled by KAREY drain for now and it will close spontaneously AYANA AUGUSTE May 03, 2016 09:39
[2016-05-03] MEDS ORDERED: Naloxone 0.4mg/ml Inj IVP PRN (10:00)
[2016-05-03] MEDS ORDERED: PCA HYDROmorphone 1mg/ml 30 ML IV PRN ×2 (10:00→12:00)
[2016-05-03] MEDS ORDERED: Rate Change PCA 1 Each MISC PRN (10:00)
[2016-05-03] MEDS ORDERED: DiphenhydrAMINE 50mg/ml Inj IVP PRN (10:00)
[2016-05-03] MEDS ORDERED: POTASSIUM PHOSPHATE IV ONE (11:00)
[2016-05-03] MEDS ORDERED: NS IV ONE (11:00)
[2016-05-03 12:00] VITALS: BP 119/62
[2016-05-03] MEDS ORDERED: Phytonadione 10 MG in D5W 55 ML IVPB ONE (12:00)
[2016-05-03] MEDS: [UNRECOGNIZED DRUG - OTHER] IV SCH (12:41)
[2016-05-03 16:18] VITALS: BP 121/63
[2016-05-03 20:18] VITALS: BP 122/68
[2016-05-03] MEDS: Fat Emulsion Iv 20% 216 ML in Tpn 1,560 ML IV SCH (21:15)
[2016-05-03] MEDS: LORazepam 1mg tab SL PRN (21:16)
[2016-05-04] VITALS: BP 115/62
[2016-05-04] MEDS: NovoLOG Insulin Flexpen SUBQ SCH ×4 (00:21→18:18)
[2016-05-04] MEDS: POTASSIUM CHLORIDE IV SCH (01:52)
[2016-05-04] MEDS: [UNRECOGNIZED DRUG - OTHER] IV SCH (01:52)
[2016-05-04] MEDS: D5 IV SCH (01:52)
[2016-05-04] MEDS: metroNIDAZOLE 500mg 100 ML IV SCH ×4 (03:16→21:06)
[2016-05-04] MEDS: Ampicillin/Sulbactam Sod 3 GM in NS 100 ML IV SCH ×4 (03:16→21:05)
[2016-05-04 04:00] VITALS: BP 129/62
[2016-05-04] MEDS: Levothyroxine 25mcg tab ORAL SCH (06:30)
[2016-05-04] MEDS: PCA shift volume MISC SCH ×3 (07:00→23:27)
[2016-05-04 08:00] VITALS: BP 120/70
--- NOTE | 2016-05-04 08:55 | General Progress Note ---
Progress Note Progress Note AVSS. Tolerating NG tube. Right hand slightly improved sensation and strength Abdomen soft, flat, healing nicely. Ileostomy stoma pink with some enteric fluid in bag now Urine 2230 NG 1925 KAREY 70 but more serous, less enteric in appearance Labs - not drawn yet Imp. Ileus Possible small bowel leak, controlled by KAREY drain, improving Plan: Await labs Ambulate with assistance BID in hallways Continue NG tube for now AYANA AUGUSTE May 04, 2016 08:55
[2016-05-04 09:52] LABS: BASOPHILS % (AUTO) 0.9 % (0.0-2.0); EOSINOPHILS % (AUTO) 5.5 % (0.0-3.0); LYMPHOCYTES % (AUTO) 7.7 % (20.0-45.0); MEAN CORPUSCULAR HEMOGLOBIN 28.6 PG (27.0-31.0); MEAN CORPUSCULAR HGB CONC 32.6 G/DL (32.0-36.0); MEAN CORPUSCULAR VOLUME 88 FL (80-99); MEAN PLATELET VOLUME 6.1 FL (6.5-10.1); MONOCYTES % (AUTO) 3.9 % (1.0-10.0); PLATELET COUNT 233 K/UL (150-450); RED BLOOD COUNT 4.44 M/UL (4.20-5.40); RED CELL DISTRIBUTION WIDTH 14.3 % (11.6-14.8); WHITE BLOOD COUNT 9.4 K/UL (4.8-10.8)
[2016-05-04 09:56] LABS: ANION GAP 10 (5-15); CALCIUM 8.6 mg/dL (8.6-10.2); CARBON DIOXIDE 31 mEQ/L (20-30); CHLORIDE 100 mEQ/L (98-107); CREATININE 0.5 mg/dL (0.5-0.9); GLOMERULAR FILTRATION RATE > 60 mL/min (>60); HEMOLYSIS 4; MAGNESIUM 1.9 mg/dL (1.7-2.5); SODIUM 141 mEQ/L (135-145)
[2016-05-04 12:00] VITALS: BP 125/58
[2016-05-04] MEDS ORDERED: NS IV ONE (12:00)
[2016-05-04] MEDS ORDERED: POTASSIUM PHOSPHATE IV ONE (12:00)
--- NOTE | 2016-05-04 12:10 | Wound Nurse Progress Note ---
Wound RN Progress Note Wound Consult Patient reassessed noted stoma site ,pink shiny in color, surrounding skin is intact, no s/s of infection to site.Denies pain to site at this time. Patient was provided with education , showed patient how to clean site,apply a skin barrier protectant, how to measure stoma and cut ostomy bag fit to cut, size to cut is at 35mm with measurement guide. Showed patient how to cut wafer with measurement tool. Application tolerated well. Patient was able to assist with snap on ostomy bag to wafer. Complete seal reached. Also made patient aware of surgical site and as much as possible to avoid applying wafer tip to krystina site on abdomen. RODDY PENNINGTON May 04, 2016 12:10
[2016-05-04] MEDS ORDERED: PCA HYDROmorphone 1mg/ml 30 ML IV PRN (13:00)
[2016-05-04] MEDS ORDERED: Naloxone 0.4mg/ml Inj IVP PRN (13:00)
[2016-05-04] MEDS ORDERED: Rate Change PCA 1 Each MISC PRN (13:00)
[2016-05-04] MEDS ORDERED: DiphenhydrAMINE 50mg/ml Inj IVP PRN (13:00)
[2016-05-04 16:08] VITALS: BP 125/72
[2016-05-04] MEDS ORDERED: [UNRECOGNIZED DRUG - MIXTURE] IV SCH (18:00)
[2016-05-04 20:00] VITALS: BP 130/70
[2016-05-04] MEDS: Fat Emulsion Iv 20% 216 ML in Tpn 1,560 ML IV SCH (21:13)
[2016-05-05] VITALS: BP 119/65
[2016-05-05] MEDS: NovoLOG Insulin Flexpen SUBQ SCH ×4 (00:14→18:46)
[2016-05-05] MEDS: metroNIDAZOLE 500mg 100 ML IV SCH ×2 (03:08→11:30)
[2016-05-05] MEDS: Ampicillin/Sulbactam Sod 3 GM in NS 100 ML IV SCH ×2 (03:08→08:54)
[2016-05-05 04:00] VITALS: BP 125/65
[2016-05-05] MEDS: Levothyroxine 25mcg tab ORAL SCH (05:59)
[2016-05-05 06:16] LABS: BASOPHILS % (AUTO) 1.3 % (0.0-2.0); EOSINOPHILS % (AUTO) 6.5 % (0.0-3.0); LYMPHOCYTES % (AUTO) 8.4 % (20.0-45.0); MEAN CORPUSCULAR HGB CONC 33.5 G/DL (32.0-36.0); MEAN CORPUSCULAR VOLUME 87 FL (80-99); MEAN PLATELET VOLUME 6.3 FL (6.5-10.1); MONOCYTES % (AUTO) 8.7 % (1.0-10.0); PLATELET COUNT 202 K/UL (150-450); RED BLOOD COUNT 3.83 M/UL (4.20-5.40); RED CELL DISTRIBUTION WIDTH 14.4 % (11.6-14.8)
[2016-05-05 06:29] LABS: INR 1.1 (0.9-1.1); PROTHROMBIN TIME 10.7 SEC (9.30-11.50)
[2016-05-05 06:41] LABS: ANION GAP 10 (5-15); CALCIUM 8.3 mg/dL (8.6-10.2); CARBON DIOXIDE 27 mEQ/L (20-30); CHLORIDE 102 mEQ/L (98-107); CREATININE 0.5 mg/dL (0.5-0.9); GLOMERULAR FILTRATION RATE > 60 mL/min (>60); HEMOLYSIS 2; POTASSIUM 3.6 mEQ/L (3.4-4.9); SODIUM 139 mEQ/L (135-145)
[2016-05-05] MEDS: PCA shift volume MISC SCH ×3 (07:30→23:00)
[2016-05-05 08:00] VITALS: BP 128/82
--- NOTE | 2016-05-05 09:24 | General Progress Note ---
Progress Note Progress Note AVSS Occasional cramping Ambulating well. right hand weakness slightly better as is numbness Abdomen soft, non-distended, incisions clean Urine 2450 NG 1625 Ileostomy 40 KAREY 33 (decreased) WBC 7000 Hgb 11.1 stable INR 1.1 BMP-wnl Imp. Persistent ileus Plan; STAT 2 view abdomen XRay D/C urinary Can after XRay completed May need trial of clamping NG tube vs. CT scan abd+pelvis with contrast if ileostomy output does not increase soon AYANA AUGUSTE May 05, 2016 09:24
[2016-05-05] MEDS ORDERED: D5 1/4NS w/KCl 20mEq 1,000 ML IV SCH (10:00)
--- NOTE | 2016-05-05 11:09 | Diagnostic Imaging Report ---
Indication: Abdominal pain Comparison: None Single view of the abdomen obtained There is a right lower quadrant ostomy. Skin krystina are noted anteriorly. There is an NG tube which appears to be in good position. There is relative absence of bowel gas. Impression: Recent abdominal surgery. No acute findings appreciated.
[2016-05-05] MEDS: D5 1/2NS w/KCl 40meq 1000ml 1,000 ML IV SCH (11:31)
[2016-05-05 12:00] VITALS: BP 118/62
[2016-05-05 16:21] VITALS: BP 127/68
[2016-05-05 20:32] VITALS: BP 121/69
[2016-05-05] MEDS: Fat Emulsion Iv 20% 216 ML in Tpn 1,560 ML IV SCH (21:17)
[2016-05-06] VITALS: BP 122/64
[2016-05-06 04:00] VITALS: BP 117/61
[2016-05-06] MEDS: NovoLOG Insulin Flexpen SUBQ SCH ×4 (06:22→19:14)
[2016-05-06] MEDS: Levothyroxine 25mcg tab ORAL SCH (06:32)
[2016-05-06] MEDS: PCA shift volume MISC SCH ×3 (07:00→23:00)
[2016-05-06 08:00] VITALS: BP 147/68
--- NOTE | 2016-05-06 08:48 | General Progress Note ---
Progress Note Progress Note AVSS. Not in pain and no cramping. Off antibiotics Abdomen soft, slight distention, incisions clean Urine (voiding) 1445 Ileostomy only 35cc bilious NG 1885cc KAREY drain up 105 bilious WBC 7000 Hgb 11.1 CMP,Mg,P - pending Imp. Persistent ileus + small bowel leak Plan: STAT CT scan abdomen and pelvis with oral and IV contrast Continue TPN AYANA AUGUSTE May 06, 2016 08:48
[2016-05-06 08:55] LABS: ALANINE AMINOTRANSFERASE 7 U/L (3-33); ALBUMIN/GLOBULIN RATIO 1.2 (1.0-2.7); ANION GAP 12 (5-15); ASPARTATE AMINO TRANSFERASE 12 U/L (5-40); CALCIUM 8.8 mg/dL (8.6-10.2); CARBON DIOXIDE 28 mEQ/L (20-30); CHLORIDE 103 mEQ/L (98-107); CREATININE 0.5 mg/dL (0.5-0.9); GLOMERULAR FILTRATION RATE > 60 mL/min (>60); HEMOLYSIS 6; MAGNESIUM 1.8 mg/dL (1.7-2.5); PHOSPHORUS 3.6 mg/dL (2.5-4.8); POTASSIUM 3.9 mEQ/L (3.4-4.9); SODIUM 143 mEQ/L (135-145); TOTAL PROTEIN 4.9 g/dL (6.6-8.7)
[2016-05-06 09:15] LABS: BASOPHILS % (AUTO) 0.7 % (0.0-2.0); EOSINOPHILS % (AUTO) 4.6 % (0.0-3.0); LYMPHOCYTES % (AUTO) 7.1 % (20.0-45.0); MEAN CORPUSCULAR HEMOGLOBIN 29.5 PG (27.0-31.0); MEAN CORPUSCULAR VOLUME 87 FL (80-99); MEAN PLATELET VOLUME 6.9 FL (6.5-10.1); MONOCYTES % (AUTO) 6.7 % (1.0-10.0); PLATELET COUNT 219 K/UL (150-450); RED BLOOD COUNT 3.73 M/UL (4.20-5.40); RED CELL DISTRIBUTION WIDTH 15.7 % (11.6-14.8); WHITE BLOOD COUNT 6.6 K/UL (4.8-10.8)
[2016-05-06] MEDS ORDERED: DiphenhydrAMINE 50mg/ml Inj IVP PRN (09:18)
[2016-05-06] MEDS ORDERED: Naloxone 0.4mg/ml Inj IVP PRN (09:19)
[2016-05-06] MEDS ORDERED: Rate Change PCA 1 Each MISC PRN (09:20)
[2016-05-06] MEDS: D5 1/2NS w/KCl 40meq 1000ml 1,000 ML IV SCH (09:30)
[2016-05-06 12:00] VITALS: BP 128/67
--- NOTE | 2016-05-06 14:15 | Diagnostic Imaging Report ---
Indication: Abdominal pain Technique: Continuous helical transaxial imaging of the abdomen and pelvis was obtained from the lung bases to the pubic symphysis during intravenous contrast administration. Coronal 2-D reformats were also obtained. Study obtained in a Siemens sensation [address] Total Dose length Product (DLP): [address] Dose Index Volume (CTDIvol): 16 mGy Comparison: None Findings: Moderate bilateral pleural effusions and posterior basilar atelectasis demonstrated. There is a nasogastric tube which is in good position. Patient has a remote history of a proctocolectomy and multiple ileostomy revisions. Patient is one week postop from removal of the continent ileostomy, lysis of adhesions and formation of a standard right-sided ileostomy. Drain entering the left lower quadrant of the abdomen with the tip situated in the area of the rectum demonstrated. Patient presents with poor ileostomy output following surgery. CT shows distal 5 cm of relatively nondistended and decompressed appearing ileum noted just proximal to the stoma of the ileostomy. There is apparent transition to more dilated ileum in an area of markedly distorted and moderately dilated small bowel and surgical clips/sutures. More proximally, there are multiple dilated contrast-filled loops of jejunum. Obviously, some contrast is passing through the apparent transition and into ileostomy bag. The difference in caliber indicates some degree of partial bowel obstruction probably related to recent surgery and/or residual adhesions. Followup is recommended as it is reasonable to anticipate some improvement with time. In the area of the surgical drain tip which is in the rectal bed there is increased density of the fluid. This may represent the more cellular components of blood. The possibility of a small enteric contrast leak is not excluded but there is no evidence of reese contrast extravasation on this examination. The more likely possibility is this represents more organized portion of the hemoperitoneum. There are other small pockets of fluid in the paracolic gutters bilaterally. The findings were discussed and reviewed with Dr. Jeffery Gamboa. No abnormalities of the liver or spleen, pancreas or gallbladder are identified. Small cysts are noted within both kidneys. Ossifications in the spleen are present. The uterus and ovaries are not identified. Impression: Status post recent ileostomy and lysis of adhesions presenting now with partial small bowel obstruction about 5 cm proximal to the right lower quadrant ileostomy. History of remote procto -colectomy. Area of transition is in the area of recent surgery that showed extensive adhesions. Scattered pockets of free fluid and some air within the lower abdomen and pelvis. The pelvic fluid collection is slightly high density, most likely on the basis of residual hemoperitoneum. Drain noted in place. Status post total hysterectomy an old fracture may. Mild to moderate bilateral pleural effusions and posterior basilar atelectasis. Calcific splenic granulomata. Atherosclerotic vascular disease NG tube in good position. The CT scanner at [facility] is accredited by the [employer] and the scans are performed using protocols designed to limit radiation exposure to as low as reasonably achievable to attain images of sufficient resolution adequate for diagnostic evaluation.
--- NOTE | 2016-05-06 14:20 | General Progress Note ---
Progress Note Progress Note CT scan reveals a high grade partial obstruction with an angulated loop of bowel under the abdominal wall proximal to the ileostomy segment, and small collections of free fluid in abdomen and pelvis. Some contrast has passed into the ileostomy appliance. No evidence of extravasation of contrast. Abdomen soft, mild distention. some drainage around the KAREY drain - dressing changed Ileostomy with 150cc output since the scan - much increased from prior days. Imp. High grade partial early post-operative small bowel obstruction (? torsion of a loop of distal ileum, proximal to the ileostomy segment) Plan: Unless there is substantial ileostomy output overnight, with correspondingly much less NG output, she will require re-operation. Full discussion with the patient. AYANA AUGUSTE May 06, 2016 14:20
[2016-05-06 16:10] VITALS: BP 122/69
[2016-05-06 20:34] VITALS: BP 116/67
[2016-05-06] MEDS: Iron Sucrose 100 MG in NS 110 ML IVPB SCH (21:36)
[2016-05-06] MEDS: Fat Emulsion Iv 20% 216 ML in Tpn 1,560 ML IV SCH (21:36)
[2016-05-06] MEDS: PCA HYDROmorphone 1mg/ml 30 ML IV PRN (23:55)
[2016-05-07] VITALS: BP 113/61
[2016-05-07] MEDS: NovoLOG Insulin Flexpen SUBQ SCH ×4 (00:01→18:13)
[2016-05-07 04:00] VITALS: BP 119/61
[2016-05-07] MEDS: Levothyroxine 25mcg tab ORAL SCH (06:26)
[2016-05-07 07:06] LABS: MEAN CORPUSCULAR HEMOGLOBIN 29.1 PG (27.0-31.0); MEAN CORPUSCULAR HGB CONC 32.4 G/DL (32.0-36.0); MEAN CORPUSCULAR VOLUME 90 FL (80-99); MEAN PLATELET VOLUME 6.9 FL (6.5-10.1); PLATELET COUNT 242 K/UL (150-450); RED BLOOD COUNT 3.91 M/UL (4.20-5.40); RED CELL DISTRIBUTION WIDTH 16.1 % (11.6-14.8); WHITE BLOOD COUNT 8.1 K/UL (4.8-10.8)
[2016-05-07 07:25] LABS: ANION GAP 12 (5-15); CALCIUM 8.6 mg/dL (8.6-10.2); CARBON DIOXIDE 26 mEQ/L (20-30); CHLORIDE 104 mEQ/L (98-107); CREATININE 0.6 mg/dL (0.5-0.9); GLOMERULAR FILTRATION RATE > 60 mL/min (>60); HEMOLYSIS 2; POTASSIUM 4.3 mEQ/L (3.4-4.9); SODIUM 142 mEQ/L (135-145)
[2016-05-07] MEDS: PCA shift volume MISC SCH ×3 (07:25→23:00)
[2016-05-07 08:00] VITALS: BP 120/68
--- NOTE | 2016-05-07 08:45 | General Progress Note ---
Progress Note Progress Note AVSS No nausea or emesis and no NG output since 1500 yesterday. Tube plugged for 2 hours this am - aspirated and only 60cc obtained Abdomen soft, flat, non-tender, healing nicely Urine [address] since CT scan KAREY drain 100cc still bile stained WBC 8100 Hgb 11.4 K 4.3 Imp. Improved with apparent resolution of high-grade partial SBO Plan: D/C NG tube Continue npo today; TPN Monitor KAREY drain output If stable in AM begin clear liquid diet AYANA AUGUSTE May 07, 2016 08:45
[2016-05-07 10:11] LABS: ANISOCYTOSIS 1+; BAND NEUTROPHILS % (MANUAL) 0 % (0-8); BASOPHILS % (MANUAL) 0 % (0-2); EOSINOPHILS % (MANUAL) 0 % (0-3); LYMPHOCYTES % (MANUAL) 7 % (20-45); NEUTROPHILS % (MANUAL) 88 % (45-75); PLATELET ESTIMATE ADEQUATE; PLATELET MORPHOLOGY NORMAL; TOTAL CELLS COUNTED 100
[2016-05-07] MEDS: D5 1/2NS w/KCl 40meq 1000ml 1,000 ML IV SCH (10:39)
[2016-05-07 12:00] VITALS: BP 116/63
[2016-05-07 16:08] VITALS: BP 117/73
[2016-05-07 20:00] VITALS: BP 125/74
[2016-05-07] MEDS: Iron Sucrose 100 MG in NS 110 ML IVPB SCH (22:15)
[2016-05-07] MEDS: Fat Emulsion Iv 20% 216 ML in Tpn 1,560 ML IV SCH (22:22)
[2016-05-08] VITALS: BP 113/65
[2016-05-08] MEDS: NovoLOG Insulin Flexpen SUBQ SCH ×4 (00:06→18:51)
[2016-05-08 04:00] VITALS: BP 114/66
[2016-05-08] MEDS: PCA HYDROmorphone 1mg/ml 30 ML IV PRN (05:40)
[2016-05-08] MEDS: Levothyroxine 25mcg tab ORAL SCH (05:41)
[2016-05-08] MEDS: PCA shift volume MISC SCH (07:00)
[2016-05-08 08:00] VITALS: BP 116/70
--- NOTE | 2016-05-08 09:33 | General Progress Note ---
Progress Note Progress Note AVSS No nausea or cramping. Abdomen soft, non-distended, non-tender, healing well Urine 2775 Ileostomy 365 KAREY drain 135 (only 20cc overnight) Imp. Improved Plan: Clear liquid diet D/C BILLET SHEARER and supplemental IV Continue TPN labs in AYANA HERNANDEZ May 08, 2016 09:33
[2016-05-08 12:00] VITALS: BP 112/57
[2016-05-08 16:00] VITALS: BP 121/65
[2016-05-08] MEDS: Norco 5mg/325mg tab ORAL PRN (16:06)
[2016-05-08 20:00] VITALS: BP 122/68
[2016-05-08] MEDS ORDERED: Phytonadione 10 mg/mL 1ml amp SUBQ SCH (21:00)
[2016-05-08] MEDS: Iron Sucrose 100 MG in NS 110 ML IVPB SCH (21:54)
[2016-05-08] MEDS: Fat Emulsion Iv 20% 216 ML in Tpn 1,560 ML IV SCH (21:56)
[2016-05-08] MEDS: LORazepam 1mg tab SL PRN (22:11)
[2016-05-09] VITALS: BP 95/65
[2016-05-09] MEDS: NovoLOG Insulin Flexpen SUBQ SCH ×4 (00:28→18:19)
[2016-05-09 04:00] VITALS: BP 121/67
[2016-05-09 05:53] LABS: BASOPHILS % (AUTO) 0.8 % (0.0-2.0); EOSINOPHILS % (AUTO) 2.8 % (0.0-3.0); LYMPHOCYTES % (AUTO) 7.7 % (20.0-45.0); MEAN CORPUSCULAR HEMOGLOBIN 29.2 PG (27.0-31.0); MEAN CORPUSCULAR HGB CONC 32.8 G/DL (32.0-36.0); MEAN CORPUSCULAR VOLUME 89 FL (80-99); MEAN PLATELET VOLUME 7.7 FL (6.5-10.1); MONOCYTES % (AUTO) 6.4 % (1.0-10.0); NEUTROPHILS % (AUTO) 82.3 % (45.0-75.0); PLATELET COUNT 283 K/UL (150-450); RED BLOOD COUNT 3.83 M/UL (4.20-5.40); RED CELL DISTRIBUTION WIDTH 15.9 % (11.6-14.8); WHITE BLOOD COUNT 6.8 K/UL (4.8-10.8)
[2016-05-09 06:24] LABS: ALANINE AMINOTRANSFERASE 21 U/L (3-33); ALBUMIN/GLOBULIN RATIO 1.1 (1.0-2.7); ANION GAP 13 (5-15); ASPARTATE AMINO TRANSFERASE 24 U/L (5-40); CALCIUM 8.7 mg/dL (8.6-10.2); CARBON DIOXIDE 24 mEQ/L (20-30); CHLORIDE 104 mEQ/L (98-107); CREATININE 0.5 mg/dL (0.5-0.9); GLOMERULAR FILTRATION RATE > 60 mL/min (>60); HEMOLYSIS 6; MAGNESIUM 1.8 mg/dL (1.7-2.5); PHOSPHORUS 2.9 mg/dL (2.5-4.8); POTASSIUM 3.8 mEQ/L (3.4-4.9); SODIUM 141 mEQ/L (135-145); TOTAL PROTEIN 5.2 g/dL (6.6-8.7)
[2016-05-09] MEDS: Levothyroxine 25mcg tab ORAL SCH (06:34)
[2016-05-09 08:00] VITALS: BP 107/57
--- NOTE | 2016-05-09 09:21 | General Progress Note ---
Progress Note Progress Note AVSS Tolerated 600cc clear liquids. No GI complaints Abdomen soft, incisions clean. Urine 1950 Ileostomy 240 KAREY 255 enteric WBC 8800 Hgb 11.2 K 3.8 P/MG?BMP-wnl Albumin up 2.8 Imp. Improving but still with enteric drainage via KAREY drain Right hand weakness/numbness - improving Plan: BCIR low residue diet Hopefully KAREY output will decrease Continue TPN until oral intake adequate for nutritional needs AYANA AUGUSTE May 09, 2016 09:21
[2016-05-09 12:00] VITALS: BP 115/74
[2016-05-09 16:00] VITALS: BP 113/68
[2016-05-09] MEDS ORDERED: Tubing IV Secondary IV ONE (16:07)
[2016-05-09] MEDS: Norco 5mg/325mg tab ORAL PRN (18:18)
[2016-05-09 20:00] VITALS: BP 122/69
[2016-05-09] MEDS ORDERED: Norco 5mg/325mg tab ORAL ONE (20:30)
[2016-05-09] MEDS: Iron Sucrose 100 MG in NS 110 ML IVPB SCH (20:41)
[2016-05-09] MEDS: Fat Emulsion Iv 20% 216 ML in Tpn 1,560 ML IV SCH (20:42)
[2016-05-09] MEDS ORDERED: Cathflo Alteplase 2mg Inj INJ ONE (22:00)
[2016-05-09] MEDS: LORazepam 1mg tab SL PRN (22:48)
[2016-05-10] VITALS: BP 110/62
[2016-05-10] MEDS: Levothyroxine 25mcg tab ORAL SCH (06:22)
[2016-05-10] MEDS: NovoLOG Insulin Flexpen SUBQ SCH ×4 (06:24→18:30)
[2016-05-10 08:00] VITALS: BP 112/63
--- NOTE | 2016-05-10 11:22 | General Progress Note ---
Progress Note Progress Note AVSS Some leakage from ileostomy appliance - stoma well formed Eating 25-50% of low residue diet Abdomen soft, healing nicely Urine 1950 Ileostomy 145cc KAREY drain 120cc but only 10cc past 8 hours Imp. 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
--- NOTE | 2016-05-10 11:44 | Cardiology Report ---
APPROVED REPORT EKG Measurement Heart [id number] [id number] Normal sinus rhythm Normal ECG
[2016-05-10 12:00] VITALS: BP 111/74
[2016-05-10] MEDS: Fat Emulsion Iv 20% 216 ML in Tpn 1,560 ML IV SCH ×2 (12:00→16:24)
[2016-05-10] MEDS: Norco 5mg/325mg tab ORAL PRN ×2 (13:06→17:15)
[2016-05-10] MEDS ORDERED: Tubing IV Secondary IV ONE (15:23)
[2016-05-10] MEDS ORDERED: NS 275ml ONE (15:23)
[2016-05-10 16:00] VITALS: BP 108/58
[2016-05-10 20:00] VITALS: BP 116/60
[2016-05-10] MEDS: FAT EMULSION 20% IV SCH (20:40)
[2016-05-10] MEDS: TPN IV SCH (20:40)
[2016-05-10] MEDS: Iron Sucrose 100 MG in NS 110 ML IVPB SCH (20:42)
[2016-05-10] MEDS: LORazepam 1mg tab SL PRN (21:20)
[2016-05-11] VITALS: BP 113/61
[2016-05-11 04:00] VITALS: BP 109/62
[2016-05-11] MEDS: NovoLOG Insulin Flexpen SUBQ SCH ×4 (06:00→17:52)
[2016-05-11] MEDS: Levothyroxine 25mcg tab ORAL SCH (06:05)
[2016-05-11 08:04] VITALS: BP 104/57
--- NOTE | 2016-05-11 08:29 | General Progress Note ---
Progress Note Progress Note AVSS Eating small amounts and tolerating it well Abdomen soft, flat, healing well po: 1180 Urine: 2000 Ileostomy 800cc KAREY drain 45 (much decreased) Imp. Improving Plan: continue TPN monitor I&O, KAREY drain fistula output hopefully can D/C TPN tomorrow and plan for discharge later this week AYANA AUGUSTE May 11, 2016 08:29
[2016-05-11 12:02] VITALS: BP 122/57
[2016-05-11] MEDS: Norco 5mg/325mg tab ORAL PRN (13:35)
[2016-05-11 16:14] VITALS: BP 112/60
[2016-05-11 20:00] VITALS: BP 104/62
[2016-05-11] MEDS: TPN IV SCH (20:25)
[2016-05-11] MEDS: FAT EMULSION 20% IV SCH (20:25)
[2016-05-11] MEDS: LORazepam 1mg tab SL PRN (22:18)
[2016-05-12] VITALS: BP 106/62
[2016-05-12] MEDS: NovoLOG Insulin Flexpen SUBQ SCH ×4 (00:24→18:19)
[2016-05-12] MEDS: Levothyroxine 25mcg tab ORAL SCH (05:31)
[2016-05-12 07:18] LABS: MEAN CORPUSCULAR HEMOGLOBIN 29.5 PG (27.0-31.0); MEAN CORPUSCULAR HGB CONC 32.3 G/DL (32.0-36.0); MEAN CORPUSCULAR VOLUME 92 FL (80-99); PLATELET COUNT 351 K/UL (150-450); RED BLOOD COUNT 4.03 M/UL (4.20-5.40); RED CELL DISTRIBUTION WIDTH 15.8 % (11.6-14.8); WHITE BLOOD COUNT 10.9 K/UL (4.8-10.8)
[2016-05-12 07:44] LABS: ALANINE AMINOTRANSFERASE 34 U/L (3-33); ANION GAP 13 (5-15); ASPARTATE AMINO TRANSFERASE 15 U/L (5-40); CALCIUM 9.5 mg/dL (8.6-10.2); CARBON DIOXIDE 26 mEQ/L (20-30); CHLORIDE 99 mEQ/L (98-107); CREATININE 0.5 mg/dL (0.5-0.9); GLOMERULAR FILTRATION RATE > 60 mL/min (>60); HEMOLYSIS 6; MAGNESIUM 1.7 mg/dL (1.7-2.5); PHOSPHORUS 3.3 mg/dL (2.5-4.8); POTASSIUM 4.3 mEQ/L (3.4-4.9); SODIUM 138 mEQ/L (135-145); TOTAL PROTEIN 6.1 g/dL (6.6-8.7)
[2016-05-12 08:00] VITALS: BP 102/58
[2016-05-12] MEDS ORDERED: Lidocaine 1% Plain 30 ml INJ ONE (09:00)
[2016-05-12 09:36] LABS: ANISOCYTOSIS 1+; BAND NEUTROPHILS % (MANUAL) 0 % (0-8); BASOPHILS % (MANUAL) 0 % (0-2); EOSINOPHILS % (MANUAL) 1 % (0-3); LYMPHOCYTES % (MANUAL) 3 % (20-45); NEUTROPHILS % (MANUAL) 89 % (45-75); PLATELET ESTIMATE ADEQUATE; PLATELET MORPHOLOGY NORMAL; TOTAL CELLS COUNTED 100
--- NOTE | 2016-05-12 10:21 | General Progress Note ---
Progress Note Progress Note AVSS but tachycardia 97-112. States she has some abdominal pain but avoiding taking [place] although it does give relief Eating 50% of low residue diet Abdomen soft, flat, no tenderness. 1/3 krystina removed. Ileostomy stoma stable KAREY drain re-sutured with new 2-0 Nylon Urine 1500 Ileostomy 625 KAREY 70 WBC 10,900 Hgb 11.9 BMP-wnl with BUN 17 Cr 0.5 Albumin up 3.1 mildly elevated liver enzymes due to TPN Imp: Improving Plan: D/C TPN after current supply done today and remove PIC line Provide discharge supplies and Rx [place] 5/325 #40 and Ativan 1mg #60 q4h prn cramps and qhs prn insomnia Will remove remaining krystina in AM continue VS q4h and strict I&O AYANA AUGUSTE May 12, 2016 10:21
[2016-05-12] MEDS: LORazepam 1mg tab SL PRN ×3 (11:39→21:44)
[2016-05-12 12:00] VITALS: BP 111/68
[2016-05-12] MEDS: Norco 5mg/325mg tab ORAL PRN ×2 (13:34→21:10)
[2016-05-12 16:33] VITALS: BP 113/65
[2016-05-12 20:00] VITALS: BP 104/61
[2016-05-13] VITALS: BP 96/55
[2016-05-13] MEDS: LORazepam 1mg tab SL PRN ×2 (03:00→07:59)
[2016-05-13 04:00] VITALS: BP 131/47
[2016-05-13] MEDS: Levothyroxine 25mcg tab ORAL SCH (05:35)
[2016-05-13 08:00] VITALS: BP 100/56
[2016-05-13 12:00] VITALS: BP 98/63
[2016-05-13] MEDS: Norco 5mg/325mg tab ORAL PRN ×2 (12:15→19:45)
--- NOTE | 2016-05-13 13:18 | Wound Nurse Progress Note ---
Wound RN Progress Note Wound Consult Colostomy bag changed as ordered. noted stoma pink, surrounding tissue intact. no c/o pain to site. Patient is comfortable with ostomy bag change and is able to provide steps to changing ostomy bag.Patient also is able to apply ostomy bag clip. Patient was provided with supplies. Patient stated she will receive assistance from her sister who is a nurse at home. Patient also stated she had one over 20 years ago. Ask patient if she had any further questions regarding ostomy site. states she can manage and was thankful. RODDY PENNINGTON May 13, 2016 13:18
[2016-05-13 15:59] VITALS: BP 109/76
--- NOTE | 2016-05-13 16:04 | General Progress Note ---
Progress Note Progress Note Afebrile but tachycardia 104-134. Ambulates without symptoms. Despite same amount of po intake past 3 days, KAREY output went from 45cc and 70cc to 160cc Also, ileostomy output went from 600cc and 800cc to 1680cc past 24 hours Occasional cramping relieved by Ativan Abdomen soft, flat, non-tender, well healed ileostomy stoma and incisions KAREY site clean Imp.1) Dehydration, mild due to ileostomy losses 2) Enterocutaneous fistula, low output, post-operative Plan; STAT IV fluids now and overnight prior to discharge in early AM (assuming she is stable) Full supplies provided Full instructions provided re monitor weight, KAREY and ileo outputs, take Imodium prn (she is familiar and has used it before). I discussed the options if KAREY drainage does not decrease and stop: 1) elemental diet with Ensure etc 6-8 per day + water and gatorade 2) TPN with complete NPO status for up to 2 weeks 3) Surgery - to be avoided if at all possible because of her severe adhesions and "frozen abdomen" To f/u with me with office call 05/18 and prn Rx: Peak 5/325 #40; Ativan 1mg #60 AYANA AUGUSTE May 13, 2016 16:04
[2016-05-13 20:00] VITALS: BP 94/54
[2016-05-13] MEDS: LORazepam 1mg tab ORAL PRN (20:55)
[2016-05-14] MEDS: LORazepam 1mg tab ORAL PRN ×2 (01:18→05:57)
[2016-05-14] MEDS ORDERED: NORCO 5-325 TA1 EAC1 ORAL (01:49)
[2016-05-14] MEDS ORDERED: LORAZEPAM1 MG ORAL ×2 (01:51→01:52)
[2016-05-14] MEDS: Levothyroxine 25mcg tab ORAL SCH (05:52)
[2016-05-14] MEDS ORDERED: 1/2 NS 1000ml IV ONE (06:34)
[2016-05-14] MEDS ORDERED: NS 275ml ONE (06:34)
[2016-05-14] MEDS ORDERED: Sterile Water Irrig 1000ml IRRIG ONE (06:34)
[2016-05-14] MEDS ORDERED: Tubing IV Secondary IV ONE (06:34)
--- NOTE | 2016-05-15 15:45 | Discharge Summary ---
Discharge Summary Hospital Course Date of Admission Apr 28, 2016 at 09:05 Date of Discharge May 14, 2016 at 06:35 Admitting Diagnosis HPI Nancy Bailey is a 60 year old female who was admitted on Apr 28, 2016 at 09: 05 for Malfuntioning Burrell Continent Ileostomy Procedures DATE OF PROCEDURE: 04/28/2016 ENDOSCOPY PERFORMED: Burrell continent ileostomy pouch endoscopy. DATE OF OPERATION: 04/29/2016 PROCEDURES PERFORMED: Laparotomy with resection of failed Burrell continent ileostomy pouch and afferent bowel, repair of multiple enterotomies, and creation of Cecilia ileostomy. Hospital Course The patient is a 60-year-old female, in overall stable health with a malfunctioning Burrell continent ileostomy with continuous daily incontinence, but without difficulty with intubation. The patient has a past history of ulcerative colitis and in 1985, underwent proctocolectomy with conventional Cecilia ileostomy. In 1990, she underwent conversion of her conventional ileostomy to a Burrell type of Kock pouch continent ileostomy. She had no issues for over 20 years. In early 2014, she began having incontinence and difficulty with intubation and underwent a surgical revision at another hospital. Postoperatively, she had persistent incontinence and was told she had an ulceration within the valve. She underwent another revision at the same outside hospital in July 2015 in [place] with a two hour lysis of adhesions and findings of a patulent valve, which was narrowed and stapled to the pouch wall and the collar was reestablished. The patient stated that as soon as her postoperative indwelling catheter was removed then she started intubating her pouch, she was immediately incontinent within two days of discharge. Her usual routine was to intubate four to six times per day and she had initially in 1990, frequent pouchitis, but then only occasional. She has been taking Cipro 500 mg every 12 hours, which somewhat improves the incontinence, but definitely does not control it to any great degree. 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 Following day, she underwent Laparotomy with resection of failed Burrell continent ileostomy pouch and afferent bowel, repair of multiple enterotomies, and creation of Cecilia ileostomy.The patient had a hostile severely frozen abdomen with diffuse dense adhesions. She had a prolonged operation with blood loss of 1200 mL and received 2 units of packed red blood cell transfusion during the procedure and remained stable. She has approximately 12 feet of small bowel remaining and was not a candidate to have a new continent ileostomy pouch created. Post-operatively, she had ileus and was placed on NPO and was given pain management. She developed right hand and wrist neuropraxia. She had similar episodes before. She was given physical therapy. She was also started on TPN. She was seen by the wound nurse and was educated on ileostomy care. She was eventually started on BCIR low residue diet. KAREY drain was removed, TPN was discontinued. On the day of discharge: Afebrile but tachycardia 104-134. Ambulates without symptoms. Despite same amount of po intake past 3 days, KAREY output went from 45cc and 70cc to 160cc Also, ileostomy output went from 600cc and 800cc to 1680cc past 24 hours Occasional cramping relieved by Ativan Abdomen soft, flat, non-tender, well healed ileostomy stoma and incisions KAREY site clean Full supplies provided Full instructions provided re monitor weight, KAREY and ileo outputs, take Imodium prn (she is familiar and has used it before). Discussed the options if KAREY drainage does not decrease and stop: 1) elemental diet with Ensure etc 6-8 per day + water and gatorade 2) TPN with complete NPO status for up to 2 weeks 3) Surgery - to be avoided if at all possible because of her severe adhesions and "frozen abdomen" To f/u with me with office call 05/18 and prn Rx: [place] 5/325 #40; Ativan 1mg #60 POST-ENDOSCOPY DIAGNOSES: 1. Malfunctioning Burrell continent ileostomy with incontinence. 2. History of ulcerative colitis . 3. Status post proctocolectomy with conventional ileostomy followed by Burrell continent ileostomy in 1990 and revision in 2014 and 2015. POSTOPERATIVE DIAGNOSES: 1. Malfunctioning Burrell continent ileostomy. 2. Hostile frozen abdomen. 3. Status post multiple abdominal operations. 3.1. Proctocolectomy and Cecilia ileostomy in 1985. 3.2. Burrell continent ileostomy in 1990. 3.3. Revision of Burrell pouch in August 2014. 3.4. Revision of Burrell pouch in July 2015. (All these operations were done elsewhere). I have been assigned to complete a discharge summary on this account. I was not involved in the management of the patient's care.--Jose Craig NP. Discharge Discharge Disposition Patient was discharged to Home with Home Health(06) Discharge Diagnoses: Mara Craig NP May 15, 2016 15:45
[2016-05-22 14:13] VITALS: BP 133/77
--- NOTE | 2016-05-29 04:38 | Discharge Summary ---
DATE OF ADMISSION: 04/28/2016 DATE OF DISCHARGE: 05/14/2016 HISTORY OF PRESENT ILLNESS: The patient is a 60-year-old female, in overall stable health with a malfunctioning Burrell continent ileostomy with continuous daily incontinence without difficulty with intubation. The patient has a past history of ulcerative colitis and in 1985 underwent proctocolectomy with conventional Cecilia ileostomy. In 1990 in [place], she underwent conversion of her conventional ileostomy to a Burrell type of Kock pouch continent ileostomy. She had no issues for over 20 years, but in early 2014 she began having incontinence and difficulty with intubation. She went to a hospital in [place] and underwent surgical revision, but postoperatively had persistent incontinence. 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 The patient states that as soon as her postoperative indwelling pouch catheter was removed and she began self-intubations she had immediate incontinence. Her usual routine is to intubate four to six times per day but she had frequent pouchitis, taking Cipro. She was scheduled to undergo surgical revision of her malfunctioning Burrell pouch to create a new valve and stoma with hopefully preservation of the existing pouch. MEDICATIONS: Effexor XL, Synthroid, Cipro, and Toviaz for bladder spasms (the patient had difficulty with the urinary Can catheter in past admissions and had persistent painful urination with negative workup). ALLERGIES: None. OPERATIONS: In addition to the above, she states she had surgery for ovarian cysts, but this essentially was a RUSLAN and BSO. PHYSICAL EXAMINATION: The patient is 5 foot 8.5 inches and 125 pounds. The abdomen was soft with a long midline scar and the stoma of her Burrell pouch low in the right lower quadrant and very stenotic. 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 The patient was prepared with insertion of a dual lumen PICC line, indwelling pouch catheter to gravity drainage, intravenous hydration during her bowel prep, and full discussion regarding surgical options. Her admission hemoglobin was 13.5 with an albumin of 4.3. Her serum iron was 26 (37 to 145) and her ferritin was 24 (13 to 150). Vitamin B12 high and folic acid level was normal. She received 1000mg of Venofer during her hospital stay. She was taken to surgery on 04/29/2016 and found to have a hostile, frozen abdomen with a 3-hour lysis of adhesions required with blood loss of 1200 mL. Her pouch had to be resected as well as some of the afferent bowel, there was repair of multiple enterotomies, and a conventional Cecilia ileostomy was created in the right side of the abdomen. She received 2 units of blood during surgery. She had approximately 12 feet of small intestine remaining and was not a candidate to have a new continent ileostomy pouch created. Postoperatively, the patient was carefully observed. Her hemoglobin postoperative was 7.9, and she received a third unit of blood and her hemoglobin the following morning was 11.5 and albumin 2.8. She complained of numbness and weakness of the right hand, and stated that with prior operations she had numbness and weakness of the entire right upper extremity, which fully resolved each time. She had been observed overnight in the intensive care unit and the following morning transferred back to the nursing unit. She used the BRILLIANDEER LOPPER for pain relief with Dilaudid. During her hospital stay, her right hand and wrist weakness and numbness gradually improved. There was no upper extremity weakness other than that. Physical therapy was given for the neurapraxia. She was started on total parenteral nutrition because of low serum albumin and the extensive nature of the surgery with extensive small bowel resection. She had a prolonged ileus. A Albino-Santoyo drain had been placed into the pelvis and drained serosanguineous fluid for the first several days, but on the third postoperative day, the drainage appeared dark consistent with old blood and her hemoglobin was 10. Low potassium was treated with increasing her intravenous potassium. Her white blood cell count was 7600. The following day, she was afebrile with a BUN of 9 and creatinine 0.5. White blood cell count 7600 and hemoglobin stable at 10.1. The Albino-Santoyo drain now had a small amount of bilious fluid within it and it was hoped that this would resolve without having to take the patient back to surgery in view of her frozen abdomen. She was able to ambulate in the hallways and her urinary Can catheter remained in place because of the substantial pelvic dissection. She was seen in consultation with the Wound, Ostomy and Continence nurse. TPN was continued. She was not able to have a gastrostomy and a nasogastric tube had been placed, and she had outputs of 1500 to 2000 mL per 24 hours. Her Albino-Santoyo drainage was 33 mL in 24 hours, bilious. The patient remained afebrile with a normal white blood cell count. She had improvement in her pain, but persistent high volume nasogastric output, nearly 2 L, and very little ileostomy output. She underwent CT scan of the abdomen and pelvis with oral and intravenous contrast, which revealed a high-grade partial obstruction with an angulated loop of bowel under the abdominal wall proximal to the ileostomy segment, but contrast passed through into the ileostomy appliance. There was no evidence of extravasation. The ileostomy output gradually increased. It was felt that unless there was substantial improvement, she would need reoperation for this high-grade partial obstruction as well as the very low output fistula. The high-grade partial small bowel obstruction resolved spontaneously and overnight the patient had 400 mL of ileostomy output with only 100 mL of Albino-Santoyo output. Her nasogastric tube was plugged for two hours and aspirated with a very low residual, and she had had no output for the [address] scan. The nasogastric tube was then removed, which was on the eighth postoperative day. She was then started the following day on a clear liquid diet and her BRILLIANDEER LOPPER was stopped, but TPN was continued. Her right hand tear down man strength markedly improved and sensation was returning as well. Her abdomen was soft and nondistended with incision healing nicely and ileostomy draining well. The Albino-Santoyo put out 20 mL overnight. Her diet was gradually advanced to a low-residue diet. Her hemoglobin was 11.2 and white blood cell count 8800, continuing afebrile. She learned how to manage her ileostomy with the [facility] nursing attendant. Full discussion was had with the patient regarding the nature of her early postoperative fistula and whether reoperation would be needed or this would heal on its own. She continued to have a completely normal abdominal exam and no fever. Her white count remained normal. Hemoglobin 11.9. Albumin anne to 3.1 from a level of 2.6. The patient was taking occasional [place] for incisional type pain. She was given prescriptions for [place] 5/325 mg #40 and Ativan 1 mg #60 to be taken every 4 hours prn cramping and nightly prn insomnia. All her krystina were removed and her incisions had healed uneventfully. The ileostomy was stable. She then developed tachycardia of 104 to 134, but was able to ambulate without symptoms. She had stable oral intake. Albino-Santoyo drainage was 160 mL in 24 hours and she had a marked increase in ileostomy output going from 600 mL in 24 hours to 1680 mL in 24 hours. It was felt that she had dehydration due to ileostomy losses and was given intravenous fluids for the next 24 hours, and her tachycardia resolved. She was given Imodium, which controlled her high volume ileostomy output. She was then considered stable for discharge and was provided full instructions to monitor her weight, to monitor her Albino-Santoyo drain and ileostomy outputs, and to take Imodium as needed (she is familiar with Imodium and has used it before). I discussed the options if the Albino-Santoyo fistula drainage should not decrease and stop, including treatment with elemental diet for a period of time or potentially TPN with complete NPO status for up to 2 weeks. I felt surgery should be avoided if at all possible because of her severe adhesions and hostile, frozen abdomen. The patient was stable for discharge on the fifteenth postoperative day and was provided full supplies and her discharge medications, to be followed up with an office telephone appointment on 05/18/2016 as well as prn. DISCHARGE DIAGNOSES: 1. 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 2. History of ulcerative colitis. 3. Status post multiple abdominal operations. 1. Proctocolectomy and Cecilia ileostomy in 1985. 2. Burrell continent ileostomy in 1990. 3. RUSLAN and BSO 1990 3. Revision of Burrell pouch in August 2014. 4. Revision of Burrell pouch with two hour lysis of adhesions in July 2015 (All these operations were done elsewhere). OPERATION PERFORMED ON THIS ADMISSION: Laparotomy with resection of failed Burrell continent ileostomy pouch and afferent bowel, repair of multiple enterotomies, finding of hostile frozen abdomen with surgical time 6 hours 40 minutes, and creation of Cecilia ileostomy. The patient required 3 units of blood transfusion in the early postoperative period. The patient was discharged with a very low output, controlled, enterocutaneous fistula managed with an in-place Albino-Santoyo suction drain. Jeffery Gamboa M.D. DR: JEANNA JOB#: [id number] IAN
== END 2016-05-14 06:35 | disposition home health service (06) | DRG 330 ==
LOC: 3E 09:05 → ICU 04-29 17:13 → 3E 04-30 09:50
DX: K94.13 Enterostomy malfunction (principal); K56.7 Ileus, unspecified; J98.11 Atelectasis; K91.71 Accidental puncture and laceration of a digestive system organ or structure during a digestive system procedure; K91.61 Intraoperative hemorrhage and hematoma of a digestive system organ or structure complicating a digestive system procedure; K66.0 Peritoneal adhesions (postprocedural) (postinfection); R00.0 Tachycardia, unspecified; E86.0 Dehydration; R20.0 Anesthesia of skin; R53.1 Weakness
CPT/HCPCS: 36415; 36569; 71010; 74020; 74177; 76937; 80048; 80051; 80053; 81001; 82607; 82728; 82746; 82962; 83540; 83550; 83735; 84100; 85007; 85025; 85610; 85730; 86850; 86900; 86901; 86920; 93005; 94003; 94150; J1815; J2250; J2405; J2710; J2765